=== PATIENT | male | born 1950 | race Caucasian/White ===

== ENCOUNTER 2023-03-11 13:59 | Inpatient (IN) ==
[2023-03-11] MEDS ORDERED: ACETAMINOPHEN 1,000 MG/100 ML VIAL IV STA (14:36)
[2023-03-11] MEDS ORDERED: CEFEPIME 2,000 MG/20 ML VIAL IV STA (14:36)
[2023-03-11] MEDS ORDERED: SODIUM CHLORIDE 0.9% 500 ML IV SCH (14:45)
--- NOTE | 2023-03-11 15:05 | Emergency Department Note ---
Impression & Plan Complicated UTI (urinary tract infection), Fever, Lymphopenia ED Provider Note NAME: DIDI MCMAHON AGE: 72 SEX: M ARRIVES VIA: Walk-In INFORMANT: Patient ED PROVIDER(S): Michael Oglesby MD CHIEF COMPLAINT: Fever PLAN: Disposition: Admit MEDICAL DECISION MAKING: The patient is a pleasant 72-year-old gentleman with past medical history of CAD, hypertension, hyperlipidemia, GERD, BPH presents to the emergency department for return of fevers after being discharged from this facility 03/08 following admission from 03/04-03/08 for continuation of fevers in the setting of admission from 02/27-03/01 for urinary infection in the setting of having a prostate biopsy. Patient's initial urine culture demonstrated E. coli which was resistant to fluoroquinolones and otherwise sensitive. Urine culture on most recent admission showed no growth however in the setting of being on antibiotics. The patient developed symptoms of fever to 103 at home with chills and sweating. He was seen yesterday for voiding trial which was successful and had his Banuelos catheter removed. The patient has been on Bactrim since his discharge here. He has had an intermittent cough since his discharge but denies chest pain shortness of breath. Denies any productive sputum. On evaluation the patient is uncomfortable, febrile to 38.5 with blood pressure 100/50s. O2 saturation is 89% on room air improving to mid 90s on 2 L nasal cannula. He appears clinically dry. Abdomen is nontender without suprapubic fullness. Postvoid bladder scan did not demonstrate urinary retention per second vp hr assessment. EKG without overt acute ischemia. CXR negative for acute cardiopulmonary proces s. WBC within normal limits. However mild lymphopenia is present. Nonspecific. H/H and platelets within normal limits. With chemistry with bicarbonate of 28 without significant anion gap. Sodium is 130. Electrolytes without significant abnormality otherwise. LFTs are normal. Procalcitonin is not elevated. UA demonstrates leukoesterase with WBCs but no bacteria and epithelial cells presen t but in the setting of being on Bactrim. CT of the abdomen pelvis was performed and redemonstrates the patient's prostamegaly with no drainable fluid collection within the heterogenous prostate. Bladder wall thickening is noted consistent with suspected cystitis. No evidence of adjacent infection is seen. Note is made of mild bilateral hydroureter that is suspected to be related to chronic bladder outlet obstruction. Comment of bibasilar atelectasis. Blood cultures were drawn and empiric treatment initiated with IV cefepime. Case was discussed with Dr. Napoles [facility] [place], who will evaluate the patient for admission. Of note, given mild lymphopenia and persistence of fever despite being on appropriate treatment tickborne illness testing was performed to assess for possible alternate source. Triage Nursing notes reviewed and agree them. Prior/outside medical records reviewed Vital Signs: reviewed Differential diagnosis: Viral syndrome, otitis, pharyngitis, pneumonia, influenza, meningitis, urinary tract infection, sepsis, bacteremia, as well as other pathologies. ER treatment provided: See below. Diagnostics interpreted by me: ECG: Sinus rhythm with first-degree AV block, 66 bpm, no ectopy, no overt ST elevation or depression, QTc 390, QRS 86. Cardiac Monitoring: An order for continuous cardiac monitoring was placed and demonstrated Sinus rhythm with first-degree AV block, 66 bpm, no ectopy, Laboratory studies: See below Imaging studies: See below Consultation(s): Case was discussed with Dr. Napoles [facility] hospitalist, who will evaluate the patient for admission. HPI: The patient is a pleasant 72-year-old gentleman with past medical history of CAD, hypertension, hyperlipidemia, GERD, BPH presents to the emergency department for return of fevers after being discharged from this facility 03/08 following admission from 03/04-03/08 for continuation of fevers in the setting of admission from 02/27-03/01 for urinary infection in the setting of having a prostate biopsy. Patient's initial urine culture demonstrated E. coli which was resistant to fluoroquinolones and otherwise sensitive. Urine culture on most recent admission showed no growth however in the setting of being on antibiotics. The patient developed symptoms of fever to 103 at home with chills and sweating. He was seen yesterday for voiding trial which was successful and had his Banuelos catheter removed. The patient has been on Bactrim since his discharge here. He has had an intermittent cough since his discharge but denies chest pain shortness of breath. Denies any productive sputum. ROS: See above HPI for pertinent positives & negatives. A total of 10 systems r eviewed and were otherwise negative. VITALS:See Below PHYSICAL EXAMINATION: GENERAL: Awake, alert, fatigued-appearing, in no distress. HENT: Normocephalic, atraumatic. Oropharynx with dry mucous membranes and otherwise unremarkable. EYES: Normal conjunctiva. Sclera non-icteric. NECK: Supple. No nuchal rigidity. FROM. No JVD. RESPIRATORY: Clear to auscultation. CARDIAC: Regular rate, normal rhythm. Extremities warm and well perfused. Pulses equal. ABDOMEN: Soft, non-distended. No tenderness to palpation. No rebound or guarding. No masses. RECTAL: Deferred. MUSCULOSKELETAL: Chest examination reveals no tenderness. The back is symmetrical on inspection without obvious abnormality. There is no CVA tenderness to palpation. No joint edema. LOWER EXTREMITIES: Calves are equal size bilaterally and non-tender. No edema. No discoloration. NEURO: Normal sensorium. No sensory or motor deficits noted. SKIN: No rash or jaundice noted. Michael Oglesby MD Past Med/Surg History Medical History CAD (coronary artery disease) Elevated PSA Erectile dysfunction HTN (hypertension) Hyperlipidemia Social History Smoking Status: Never smoker Second Hand Exposure: No; Do You Dip or Chew Tobacco: No; Hx Alcohol Use: No Hx Substance Use: No Preferred Language: Russian Communication Ability: Effective Cooperative Extension Agent Required: No Beliefs That Will Affect Care: None Current Living Situation: Spouse Other Information That Helps Us Care for You: No Feels Safe at Home: Yes Safety Concerns: Feels Safe At This Time Assistive Devices: Hearing Aid - Bilateral and Walker Allergies Allergies Allergy/AdvReac Type Severity Reaction Status Date / Time No Known Allergies Allergy Verified 03/10/23 09:18 Home Meds Home Medications Medication Instructions Recorded Confirmed atorvastatin 40 mg tablet 40 mg PO PM 02/27/23 03/11/23 fluticasone propionate 50 2 spray intranasal DAILY 02/27/23 03/11/23 mcg/actuation nasal spray,suspension lisinopril 40 mg tablet 40 mg PO PM 02/27/23 03/11/23 omeprazole 20 mg capsule,delayed 20 mg PO QPM 02/27/23 03/11/23 release Previous Rx's Medication Instructions Recorded tamsulosin 0.4 mg capsule 0.4 mg PO DAILY #90 caps 01/05/23 sulfamethoxazole 800 1 tab PO Q12 10 days #20 tabs 03/07/23 mg-trimethoprim 160 mg tablet (Bactrim DS) amlodipine 5 mg tablet (Norvasc) 10 mg PO QAM 1 month #60 tabs 03/08/23 carvedilol 25 mg tablet 25 mg PO BIDM 1 month #60 tabs 03/08/23 Results & Data (ED) Vital Signs Vital Signs - 24 hr 03/11/23 14:27 03/11/23 15:23 03/11/23 15:23 Temperature 38.5 C H Temperature Source Oral Pulse Rate 66 71 Pulse Rate [Apical] 72 Pulse Rhythm Regular Pulse Rhythm [Apical] Regular Pulse Strength [Apical] Normal Respiratory Rate 20 20 Respiratory Effort / Characteristics Non-Labored Spontaneous Non-Labored Spontaneous Respiratory Depth Normal Normal Respiratory Pattern Regular Blood Pressure 102/56 L Blood Pressure [Right Arm] 124/60 Blood Pressure Mean 71 Blood Pressure Mean [Right Arm] 81 Blood Pressure Position [Right Arm] Semi-fowlers Pulse Oximetry 89 L 95 Oxygen Delivery Method Room Air Room Air Oxygen Flow Rate Sepsis Recent Fever Within 48 Hours No Sepsis New/Unexplained Change in Mental Status No Sepsis Action Taken by Nursing No Action Required 03/11/23 15:23 03/11/23 19:00 Temperature 37.4 C Temperature Source Oral Pulse Rate 68 Pulse Rate [Apical] 74 Pulse Rhythm Pulse Rhythm [Apical] Regular Pulse Strength [Apical] Normal Respiratory Rate 17 Respiratory Effort / Characteristics Non-Labored Spontaneous Respiratory Depth Normal Respiratory Pattern Regular Blood Pressure Blood Pressure [Right Arm] 159/83 H Blood Pressure Mean Blood Pressure Mean [Right Arm] 108 Blood Pressure Position [Right Arm] Semi-fowlers Pulse Oximetry 95 Oxygen Delivery Method Nasal Cannula Oxygen Flow Rate 2 Sepsis Recent Fever Within 48 Hours Sepsis New/Unexplained Change in Mental Status Sepsis Action Taken by Nursing Laboratory Data Attestation: I reviewed the patient's lab results. 03/11/23 15:08 03/11/23 16:43 Lab Results 03/11/23 03/11/23 03/11/23 Range/Units 15:08 15:08 15:08 WBC 9.33 (4.8-10.8) K/ul RBC 4.87 (4.70-6.10) M/uL Hgb 14.6 (14.0-18.0) g/dl Hct 44.3 (42.0-52.0) % MCV 91.0 (80.0-100.0) fL MCH 30.0 (25.0-34.0) pg MCHC 33.0 (32.0-36.0) g/dL RDW Std Deviation 47.0 H (36.4-46.3) fL RDW Coeff of Amor 13.9 (11.5-14.5) % Plt Count 262 (130-400) K/uL MPV 9.4 (9.4-12.4) fL Immature Gran % (Auto) 1.6 % Neut % (Auto) 86.9 % Lymph % (Auto) 7.2 % [place] % (Auto) 3.5 % Eos % (Auto) 0.3 % Baso % (Auto) 0.5 % Neut # (Auto) 8.10 H (1.40-6.50) K/uL Lymph # (Auto) 0.67 L (1.20-3.40) K/uL [place] # (Auto) 0.33 (0.11-0.59) K/uL Eos # (Auto) 0.03 (0.00-0.50) K/uL Baso # (Auto) 0.05 (0.00-0.20) K/uL Immature Gran # (Auto) 0.15 (0.01-0.20) K/uL Sodium Cancelled Potassium Cancelled Chloride Cancelled Carbon Dioxide Cancelled Anion Gap Cancelled BUN Cancelled Creatinine Cancelled Est Cr Clr Drug Dosing Cancelled Est GFR ( Amer) Cancelled Est GFR (Non-Af Amer) Cancelled BUN/Creatinine Ratio Cancelled Glucose Cancelled Lactate 1.3 (0.4-2.0) mmol/L Calcium Cancelled Magnesium Cancelled Total Bilirubin Cancelled Direct Bilirubin Cancelled AST Cancelled ALT Cancelled Alkaline Phosphatase Cancelled Total Protein Cancelled Albumin Cancelled Procalcitonin Urine Color Urine Appearance (Clear) Urine pH (4.5-7.5) Ur Specific [place] (1.000-1.030) Urine Protein (Negative) Urine Glucose (UA) (Negative) Urine Ketones (Negative) Urine Blood (Negative) Urine Nitrite (Negative) Urine Bilirubin (Negative) Urine Urobilinogen (Negative) Ur Leukocyte Esterase (Negative) Urine WBC (Auto) (0-5) /hpf Urine RBC (Auto) (0-4) /hpf U Hyaline Cast (Auto) (0-5) /lpf U Epithel Cells (Auto) (0-5) /lpf Urine Bacteria (Auto) (Negative) Adenovirus (PCR) (NotDetected) Anaplasma Smear Babesia Smear B. pertussis DNA (PCR) (NotDetected) B.parapertussis DNA PCR (NotDetected) Lyme Disease IgG Ab (Negative) Lyme Disease IgM Ab (Negative) C. pneumoniae DNA (PCR) (NotDetected) Coronavirus OC43 (PCR) (NotDetected) Coronavirus HKU1 (PCR) (NotDetected) Coronavirus 229E (PCR) (NotDetected) SARS-CoV-2 (PCR) (NotDetected) Coronavirus NL63 (PCR) (NotDetected) Human Metapneumovir PCR (NotDetected) Influenza Type A (PCR) (NotDetected) Influenza Type B (PCR) (NotDetected) M. pneumoniae (PCR) (NotDetected) Parainfluenza 1 (PCR) (NotDetected) Parainfluenza 2 (PCR) (NotDetected) Parainfluenza 3 (PCR) (NotDetected) Parainfluenza 4 (PCR) (NotDetected) RSV (PCR) (NotDetected) Entero/Rhino (PCR) (NotDetected) 03/11/23 03/11/23 03/11/23 Range/Units 15:08 15:08 15:08 WBC (4.8-10.8) K/ul RBC (4.70-6.10) M/uL Hgb (14.0-18.0) g/dl Hct (42.0-52.0) % MCV (80.0-100.0) fL MCH (25.0-34.0) pg MCHC (32.0-36.0) g/dL RDW Std Deviation (36.4-46.3) fL RDW Coeff of Amor (11.5-14.5) % Plt Count (130-400) K/uL MPV (9.4-12.4) fL Immature Gran % (Auto) % Neut % (Auto) % Lymph % (Auto) % [place] % (Auto) % Eos % (Auto) % Baso % (Auto) % Neut # (Auto) (1.40-6.50) K/uL Lymph # (Auto) (1.20-3.40) K/uL [place] # (Auto) (0.11-0.59) K/uL Eos # (Auto) (0.00-0.50) K/uL Baso # (Auto) (0.00-0.20) K/uL Immature Gran # (Auto) (0.01-0.20) K/uL Sodium Potassium Chloride Carbon Dioxide Anion Gap BUN Creatinine Est Cr Clr Drug Dosing Est GFR ( Amer) Est GFR (Non-Af Amer) BUN/Creatinine Ratio Glucose Lactate (0.4-2.0) mmol/L Calcium Magnesium Total Bilirubin Direct Bilirubin AST ALT Alkaline Phosphatase Total Protein Albumin Procalcitonin Cancelled Urine Color Dark Yellow Urine Appearance Cloudy A (Clear) Urine pH 5.5 (4.5-7.5) Ur Specific [place] 1.027 (1.000-1.030) Urine Protein 1+ H (Negative) Urine Glucose (UA) Negative (Negative) Urine Ketones Negative (Negative) Urine Blood Trace H (Negative) Urine Nitrite Negative (Negative) Urine Bilirubin 1+ H (Negative) Urine Urobilinogen Negative (Negative) Ur Leukocyte Esterase 1+ H (Negative) Urine WBC (Auto) 10-30 H (0-5) /hpf Urine RBC (Auto) 5-10 H (0-4) /hpf U Hyaline Cast (Auto) 10-30 H (0-5) /lpf U Epithel Cells (Auto) 20-30 H (0-5) /lpf Urine Bacteria (Auto) Negative (Negative) Adenovirus (PCR) (NotDetected) Anaplasma Smear See Comment Babesia Smear See Comment B. pertussis DNA (PCR) (NotDetected) B.parapertussis DNA PCR (NotDetected) Lyme Disease IgG Ab (Negative) Lyme Disease IgM Ab (Negative) C. pneumoniae DNA (PCR) (NotDetected) Coronavirus OC43 (PCR) (NotDetected) Coronavirus HKU1 (PCR) (NotDetected) Coronavirus 229E (PCR) (NotDetected) SARS-CoV-2 (PCR) (NotDetected) Coronavirus NL63 (PCR) (NotDetected) Human Metapneumovir PCR (NotDetected) Influenza Type A (PCR) (NotDetected) Influenza Type B (PCR) (NotDetected) M. pneumoniae (PCR) (NotDetected) Parainfluenza 1 (PCR) (NotDetected) Parainfluenza 2 (PCR) (NotDetected) Parainfluenza 3 (PCR) (NotDetected) Parainfluenza 4 (PCR) (NotDetected) RSV (PCR) (NotDetected) Entero/Rhino (PCR) (NotDetected) 03/11/23 03/11/23 03/11/23 Range/Units 15:19 16:43 16:43 WBC (4.8-10.8) K/ul RBC (4.70-6.10) M/uL Hgb (14.0-18.0) g/dl Hct (42.0-52.0) % MCV (80.0-100.0) fL MCH (25.0-34.0) pg MCHC (32.0-36.0) g/dL RDW Std Deviation (36.4-46.3) fL RDW Coeff of Amor (11.5-14.5) % Plt Count (130-400) K/uL MPV (9.4-12.4) fL Immature Gran % (Auto) % Neut % (Auto) % Lymph % (Auto) % [place] % (Auto) % Eos % (Auto) % Baso % (Auto) % Neut # (Auto) (1.40-6.50) K/uL Lymph # (Auto) (1.20-3.40) K/uL [place] # (Auto) (0.11-0.59) K/uL Eos # (Auto) (0.00-0.50) K/uL Baso # (Auto) (0.00-0.20) K/uL Immature Gran # (Auto) (0.01-0.20) K/uL Sodium 130 L Potassium 4.6 Chloride 104 Carbon Dioxide 20 L Anion Gap 6 BUN 20 Creatinine 1.15 Est Cr Clr Drug Dosing 82.8 Est GFR ( Amer) 73.3 Est GFR (Non-Af Amer) 63.2 BUN/Creatinine Ratio 17.4 Glucose 116 H Lactate (0.4-2.0) mmol/L Calcium 8.2 L Magnesium 1.7 Total Bilirubin 0.5 Direct Bilirubin 0.1 AST 25 ALT 38 Alkaline Phosphatase 83 Total Protein 6.1 Albumin 3.2 L Procalcitonin 0.33 Urine Color Urine Appearance (Clear) Urine pH (4.5-7.5) Ur Specific [place] (1.000-1.030) Urine Protein (Negative) Urine Glucose (UA) (Negative) Urine Ketones (Negative) Urine Blood (Negative) Urine Nitrite (Negative) Urine Bilirubin (Negative) Urine Urobilinogen (Negative) Ur Leukocyte Esterase (Negative) Urine WBC (Auto) (0-5) /hpf Urine RBC (Auto) (0-4) /hpf U Hyaline Cast (Auto) (0-5) /lpf U Epithel Cells (Auto) (0-5) /lpf Urine Bacteria (Auto) (Negative) Adenovirus (PCR) Not Detected (NotDetected) Anaplasma Smear Babesia Smear B. pertussis DNA (PCR) Not Detected (NotDetected) B.parapertussis DNA PCR Not Detected (NotDetected) Lyme Disease IgG Ab (Negative) Lyme Disease IgM Ab (Negative) C. pneumoniae DNA (PCR) Not Detected (NotDetected) Coronavirus OC43 (PCR) Not Detected (NotDetected) Coronavirus HKU1 (PCR) Not Detected (NotDetected) Coronavirus 229E (PCR) Not Detected (NotDetected) SARS-CoV-2 (PCR) Not Detected (NotDetected) Coronavirus NL63 (PCR) Not Detected (NotDetected) Human Metapneumovir PCR Not Detected (NotDetected) Influenza Type A (PCR) Not Detected (NotDetected) Influenza Type B (PCR) Not Detected (NotDetected) M. pneumoniae (PCR) Not Detected (NotDetected) Parainfluenza 1 (PCR) Not Detected (NotDetected) Parainfluenza 2 (PCR) Not Detected (NotDetected) Parainfluenza 3 (PCR) Not Detected (NotDetected) Parainfluenza 4 (PCR) Not Detected (NotDetected) RSV (PCR) Not Detected (NotDetected) Entero/Rhino (PCR) Not Detected (NotDetected) 03/11/23 Range/Units 16:43 WBC (4.8-10.8) K/ul RBC (4.70-6.10) M/uL Hgb (14.0-18.0) g/dl Hct (42.0-52.0) % MCV (80.0-100.0) fL MCH (25.0-34.0) pg MCHC (32.0-36.0) g/dL RDW Std Deviation (36.4-46.3) fL RDW Coeff of Amor (11.5-14.5) % Plt Count (130-400) K/uL MPV (9.4-12.4) fL Immature Gran % (Auto) % Neut % (Auto) % Lymph % (Auto) % [place] % (Auto) % Eos % (Auto) % Baso % (Auto) % Neut # (Auto) (1.40-6.50) K/uL Lymph # (Auto) (1.20-3.40) K/uL [place] # (Auto) (0.11-0.59) K/uL Eos # (Auto) (0.00-0.50) K/uL Baso # (Auto) (0.00-0.20) K/uL Immature Gran # (Auto) (0.01-0.20) K/uL Sodium Potassium Chloride Carbon Dioxide Anion Gap BUN Creatinine Est Cr Clr Drug Dosing Est GFR ( Amer) Est GFR (Non-Af Amer) BUN/Creatinine Ratio Glucose Lactate (0.4-2.0) mmol/L Calcium Magnesium Total Bilirubin Direct Bilirubin AST ALT Alkaline Phosphatase Total Protein Albumin Procalcitonin Urine Color Urine Appearance (Clear) Urine pH (4.5-7.5) Ur Specific [place] (1.000-1.030) Urine Protein (Negative) Urine Glucose (UA) (Negative) Urine Ketones (Negative) Urine Blood (Negative) Urine Nitrite (Negative) Urine Bilirubin (Negative) Urine Urobilinogen (Negative) Ur Leukocyte Esterase (Negative) Urine WBC (Auto) (0-5) /hpf Urine RBC (Auto) (0-4) /hpf U Hyaline Cast (Auto) (0-5) /lpf U Epithel Cells (Auto) (0-5) /lpf Urine Bacteria (Auto) (Negative) Adenovirus (PCR) (NotDetected) Anaplasma Smear Babesia Smear B. pertussis DNA (PCR) (NotDetected) B.parapertussis DNA PCR (NotDetected) Lyme Disease IgG Ab Negative (Negative) Lyme Disease IgM Ab Negative (Negative) C. pneumoniae DNA (PCR) (NotDetected) Coronavirus OC43 (PCR) (NotDetected) Coronavirus HKU1 (PCR) (NotDetected) Coronavirus 229E (PCR) (NotDetected) SARS-CoV-2 (PCR) (NotDetected) Coronavirus NL63 (PCR) (NotDetected) Human Metapneumovir PCR (NotDetected) Influenza Type A (PCR) (NotDetected) Influenza Type B (PCR) (NotDetected) M. pneumoniae (PCR) (NotDetected) Parainfluenza 1 (PCR) (NotDetected) Parainfluenza 2 (PCR) (NotDetected) Parainfluenza 3 (PCR) (NotDetected) Parainfluenza 4 (PCR) (NotDetected) RSV (PCR) (NotDetected) Entero/Rhino (PCR) (NotDetected) Administered Medications Ondansetron HCl (Ondansetron Inj 2 Mg/Ml 2 Ml Vial) 4 mg IV Q6H PRN PRN Reason: Nausea Stop: 04/10/23 23:01 Last Admin: 03/11/23 23:24 Dose: 4 mg Documented By: EKF Discontinued Medications Cefepime HCl (Maxipime) 2,000 mg in 20 mls @ 5 mls/min IV NOW STA; Protocol Stop: 03/11/23 14:39 Last Admin: 03/11/23 15:09 Dose: 5 mls/min Documented By: HS Acetaminophen (Ofirmev) 1,000 mg in 100 mls @ 400 mls/hr IV NOW STA Stop: 03/11/23 14:50 Last Infusion: 03/11/23 16:36 Dose: 0 mls/hr Documented By: Admin: 03/11/23 15:12 Dose: 400 mls/hr Documented By: HS Sodium Chloride (Nss) 500 mls @ 999 mls/hr IV .Q31M YULIANA Stop: 03/11/23 15:15 Last Infusion: 03/11/23 16:36 Dose: 0 mls/hr Documented By: Admin: 03/11/23 15:12 Dose: 999 mls/hr Documented By: PILAR Sodium Chloride (Nss) 1,000 mls @ 999 mls/hr IV .Q1H1M YULIANA Stop: 03/11/23 16:45 Last Infusion: 03/11/23 19:07 Dose: 0 mls/hr Documented By: Admin: 03/11/23 16:41 Dose: 999 mls/hr Documented By: Infusion: 03/11/23 16:10 Dose: 999 mls/hr Documented By: Admin: 03/11/23 15:09 Dose: 999 mls/hr Documented By: PILAR Ioversol (Optiray 320 100ml) 90 ml IV ONCE ONE Stop: 03/11/23 17:40 Last Admin: 03/11/23 17:40 Dose: 90 ml Documented By: ANTONIO Imaging Data Radiologist's Impression: Chest X-Ray 03/11/23 14:36 SINGLE VIEW CHEST CLINICAL HISTORY: Sepsis. FINDINGS: An AP, portable, upright chest radiograph is compared to study dated 03/04/2023. The patient is status post midline sternotomy. The heart is enlarged noting atherosclerotic calcification of the thoracic aorta. The pulmonary vasculature is noncongested. Chronic interstitial thickening similar to previous. There is bibasilar scarring/atelectasis. The lungs and pleural spaces are otherwise clear. No pneumothorax is seen. The skeletal structures are osteopenic. The bony thorax is grossly intact. IMPRESSION: Cardiomegaly with no active disease in the chest. ACT 112: Negative or not required by law. Electronically signed by: Bassam Sun M.D. 03/11/2023 3:55 PM Abdomen/Pelvis CT 03/11/23 15:56 CT abd pelvis IV con only CLINICAL HISTORY: sepsis, UTI, ?prostatitis TECHNIQUE: Helical axial images of the abdomen and pelvis were obtained and displayed. Automated dose lowering techniques and/or adjustment according to patient size were utilized for this exam. This exam was performed with intravenous contrast. CT DOSE: 1890.63 mGy.cm COMPARISON: Prior CT abdomen pelvis 03/04/2023 FINDINGS: Lower chest: Bibasilar atelectasis versus scarring is seen. Bronchiectasis is seen. Liver: Unremarkable. No focal lesions are seen. Gallbladder and biliary tree: Patient is status post cholecystectomy. No intra- or extrahepatic biliary ductal dilation. Pancreas: Unremarkable, no focal lesions. Spleen: Unremarkable. Adrenals: Unremarkable. Kidneys and ureters: Exophytic lesions are seen measuring greater than simple fluid density, similar to prior exam. Ureters are slightly prominent bilaterally without evidence of enhancement. Bladder: Diffuse homogeneous wall thickening is seen. Reproductive organs: Markedly prostatomegaly is seen measuring up to 81 mm in diameter. The prostate is heterogeneous but without evidence of fluid collection to suggest abscess. Bowel: The appendix is normal. Lymph nodes Retroperitoneal: Unremarkable. Pelvic: Unremarkable. Mesenteric: Unremarkable. Peritoneum: Normal. Vessels: Unremarkable. Abdominal wall: A fat-containing umbilical hernia is seen. Bilateral inguinal hernias are seen. Bones: Degenerative changes in the visualized spine. IMPRESSION: 1. Redemonstration of prostatomegaly. No drainable fluid collection is definitely seen within the heterogeneous prostate. Bladder wall thickening may represent cystitis and/or sequelae of chronic outlet obstruction. No ascending infection is seen. 2. Mild bilateral hydroureter is likely secondary to chronic bladder outlet o bstruction. 3. Redemonstration of left renal lesions which measure greater than simple fluid density. Nonemergent renal ultrasound is recommended to exclude malignancy. ACT 112: Negative or not required by law. Electronically signed by: Lalo Lopez M.D. 03/11/2023 5:57 PM Discharge Plan Visit Data Chief Complaint: Fever Stated Complaint: FEVER 103, DOC REF ED Provider: Michael Oglesby Discharge Problem: Complicated UTI (urinary tract infection), Fever, Lymphopenia Patient Disposition: Admitted As Inpatient Discharge Instructions Interventions: ED Discharge Assessment Last Done: 03/11/23 23:07
[2023-03-11] MEDS: SODIUM CHLORIDE 0.9% 1,000 ML IV SCH ×2 (15:09→16:41)
[2023-03-11 15:39] LABS: Basophils # (auto) 0.05 K/uL (0.00-0.20); Basophils % (auto) 0.5 %; Eosinophils # (auto) 0.03 K/uL (0.00-0.50); Eosinophils % (auto) 0.3 %; Hematocrit (blood only) 44.3 % (42.0-52.0); Hemoglobin 14.6 g/dl (14.0-18.0); Immature Granulocytes # (auto) 0.15 K/uL (0.01-0.20); Immature Granulocytes % (auto) 1.6 %; Lymphocytes # (auto) 0.67 K/uL (1.20-3.40); Lymphocytes % (auto) 7.2 %; Mean Platelet Volume 9.4 fL (9.4-12.4); Monocytes # (auto) 0.33 K/uL (0.11-0.59); Monocytes % (auto) 3.5 %; Neutrophils % (auto) 86.9 %; Platelet Count 262 K/uL (130-400); RDW Coefficient of Variation 13.9 % (11.5-14.5); Red Blood Count 4.87 M/uL (4.70-6.10); White Blood Count 9.33 K/ul (4.8-10.8)
--- NOTE | 2023-03-11 15:43 | Electrocardiogram Report ---
Test Reason : Blood Pressure : / mmHG Vent. Rate : 066 BPM Atrial Rate : 066 BPM P-R Int : 228 ms QRS Dur : 086 ms QT Int : 380 ms P-R-T Axes : 046 -18 041 degrees QTc Int : 398 ms Sinus rhythm with 1st degree A-V block Otherwise normal ECG When compared with ECG of 04-MAR-2023 09:35, Premature ventricular complexes are no longer Present Confirmed by Rich Martinez ([id number]) on 03/11/2023 3:43:47 PM Referred By: Confirmed By:Rich Martinez
[2023-03-11 15:50] LABS: Appearance Urine Cloudy (Clear); Bacteria Urine Automated Negative (Negative); Blood Urine Trace (Negative); Color Urine Dark Yellow; Epithelial Cell Urine Auto 20-30 /lpf (0-5); Glucose Urine UA Negative (Negative); Ketones Urine Negative (Negative); Leukocyte Esterase Urine 1+ (Negative); Nitrite Urine Negative (Negative); Protein Urine 1+ (Negative); Specific Gravity Urine 1.027 (1.000-1.030); Urobilinogen Urine Negative (Negative); pH Urine 5.5 (4.5-7.5)
--- NOTE | 2023-03-11 15:56 | XRay Report ---
SINGLE VIEW CHEST CLINICAL HISTORY: Sepsis. FINDINGS: An AP, portable, upright chest radiograph is compared to study dated 03/04/2023. The patient is status post midline sternotomy. The heart is enlarged noting atherosclerotic calcification of the thoracic aorta. The pulmonary vasculature is noncongested. Chronic interstitial thickening similar t o previous. There is bibasilar scarring/atelectasis. The lungs and pleural spaces are otherwise clear . No pneumothorax is seen. The skeletal structures are osteopenic. The bony thorax is grossly intact. IMPRESSION: Cardiomegaly with no active disease in the chest. ACT 112: Negative or not required by law. Electronically signed by: Bassam Sun M.D. 03/11/2023 3:55 PM
[2023-03-11 15:58] LABS: Bilirubin Urine 1+ (Negative)
[2023-03-11 16:22] LABS: Adenovirus PCR Not Detected (NotDetected); Bordetella parapertussis PCR Not Detected (NotDetected); Bordetella pertussis PCR Not Detected (NotDetected); Chlamydia pneumoniae PCR Not Detected (NotDetected); Coronavirus 229E PCR Not Detected (NotDetected); Coronavirus CoV-2 (COVID19)PCR Not Detected (NotDetected); Coronavirus HKU1 PCR Not Detected (NotDetected); Coronavirus NL63 PCR Not Detected (NotDetected); Coronavirus OC43PCR Not Detected (NotDetected); Human Metapneumovirus PCR Not Detected (NotDetected); Influenza A PCR Not Detected (NotDetected); Influenza B PCR Not Detected (NotDetected); Mycoplasma pneumoniae PCR Not Detected (NotDetected); Parainfluenza Virus 1 PCR Not Detected (NotDetected); Parainfluenza Virus 2 PCR Not Detected (NotDetected); Parainfluenza Virus 3 PCR Not Detected (NotDetected); Parainfluenza Virus 4 PCR Not Detected (NotDetected); Respiratory Syncytial VirusPCR Not Detected (NotDetected); Rhinovirus/Enterovirus PCR Not Detected (NotDetected)
[2023-03-11 17:15] LABS: Albumin Level 3.2 gm/dl (3.4-5.0); BUN Creatinine Ratio 17.4 (10-20); Bilirubin Direct 0.1 mg/dl (0-0.2); Bilirubin,Total 0.5 mg/dl (0.2-1.0); Calcium 8.2 mg/dl (8.6-10.3); Creatinine Clr Calc Pharmacy 82.8 ml/min; Est GFR (African American) 73.3 ml/min; Est GFR (Non-African American) 63.2 ml/min; Magnesium 1.7 mg/dl (1.7-2.4); Potassium 4.6 mmol/L (3.5-5.1); Total Protein 6.1 gm/dl (6.0-8.3)
[2023-03-11] MEDS ORDERED: OPTIRAY 320 100ml IV ONE (17:39)
--- NOTE | 2023-03-11 17:59 | CT Scan Report ---
CT abd pelvis IV con only CLINICAL HISTORY: sepsis, UTI, ?prostatitis TECHNIQUE: Helical axial images of the abdomen and pelvis were obtained and displayed. Automated dose lowering techniques and/or adjustment according to patient size were utilized for this exam. This e xam was performed with intravenous contrast. CT DOSE: 1890.63 mGy.cm COMPARISON: Prior CT abdomen pelvis 03/04/2023 FINDINGS: Lower chest: Bibasilar atelectasis versus scarring is seen. Bronchiectasis is seen. Liver: Unremarkable. No focal lesions are seen. Gallbladder and biliary tree: Patient is status post cholecystectomy. No intra- or extrahepatic bilia ry ductal dilation. Pancreas: Unremarkable, no focal lesions. Spleen: Unremarkable. Adrenals: Unremarkable. Kidneys and ureters: Exophytic lesions are seen measuring greater than simple fluid density, similar to prior exam. Ureters are slightly prominent bilaterally without evidence of enhancement. Bladder: Diffuse homogeneous wall thickening is seen. Reproductive organs: Markedly prostatomegaly is seen measuring up to 81 mm in diameter. The prostate is heterogeneous but without evidence of fluid collection to suggest abscess. Bowel: The appendix is normal. Lymph nodes Retroperitoneal: Unremarkable. Pelvic: Unremarkable. Mesenteric: Unremarkable. Peritoneum: Normal. Vessels: Unremarkable. Abdominal wall: A fat-containing umbilical hernia is seen. Bilateral inguinal hernias are seen. Bones: Degenerative changes in the visualized spine. IMPRESSION: 1. Redemonstration of prostatomegaly. No drainable fluid collection is definitely seen within the he terogeneous prostate. Bladder wall thickening may represent cystitis and/or sequelae of chronic outle t obstruction. No ascending infection is seen. 2. Mild bilateral hydroureter is likely secondary to chronic bladder outlet obstruction. 3. Redemonstration of left renal lesions which measure greater than simple fluid density. Nonemergen t renal ultrasound is recommended to exclude malignancy. ACT 112: Negative or not required by law. Electronically signed by: Lalo Lopez M.D. 03/11/2023 5:57 PM
[2023-03-11 19:06] LABS: Lyme Ab IgG w/WB Rflx Negative (Negative); Lyme Ab IgM w/WB Rflx Negative (Negative)
--- NOTE | 2023-03-11 19:17 | History & Physical Report ---
Date of Service March 11, 2023 Assessment & Plan (1) Sepsis: Plan: -Meeting SIRS criteria on admission, sepsis 2/2 UTI +/- prostatitis -Cefepime initiated in ER, will continue for now -BCx, UCx pending -Tickborne panel pending for fever evaluation -Currently hemodynamically stable, fever has resolved with Tylenol -Tylenol PRN fever -Monitor CBC (2) Complicated UTI (urinary tract infection): Plan: -Noted E Coli UTI resistant to fluoroquinolones from 02/27 UCx -Has been undergoing treatment with Keflex and Bactrim as outpatient over last admissions -Treatment as above with cefepime -Repeat UCx pending (3) Prostatitis, acute: Plan: -Possibly concurrent with UTI or primary infectious process given CT findings and symptom history -Continue cefepime, remainder as above (4) Metabolic encephalopathy: Plan: -Likely due to acute infection -Mental status is improving and close to baseline per family at bedside (5) Acute hyponatremia: Plan: -Na 130 on admission -Likely from poor oral intake over past few weeks, noted hyponatremia with previous admissions -Monitor BMP (6) Urinary retention: Plan: -Recent acute urinary retention in last hospitalization and Banuelos removal on 03/10 -As pt has been voiding normally since, deferring Banuelos placement on admission -Measure intake and output -Urology consult placed given recent readmission x2 and complicated UTI -Continue Flomax as prescribed by urology (7) Renal lesion: Plan: -Noted redemonstration on CTAP -Ordered renal US for further characterization (8) Acute hypoxic respiratory failure: Plan: -Hypoxia noted in ED for which patient was started on 3L NC O2 -CXR with cardiomegaly w/o acute process -Likely due to exertion, setting of morbid obesity -Weaned to 2L and saturating well by end of evaluation (9) CAD (coronary artery disease): Plan: -Continue atorvastatin, carvedilol, lisinopril (10) Hyperlipidemia: Plan: -Continue atorvastatin (11) HTN (hypertension): Plan: -Continue lisinopril, amlodipine, carvedilol -BP stable (12) GERD (gastroesophageal reflux disease): Plan: -Continue omeprazole Plan FENGI: Heart healthy Code status: Full DVT prophylaxis: Lovenox Isolation: None Disposition: Medical/surgical History of Present Illness Chief Complaint: UTI Primary Care Provider: Neri Loyd Pt is 72 yo M with PMH CAD, HTN, HLD, GERD, BPH presenting with fever. Pt admitted 02/27-03/01 for E Coli UTI/prostatitis following prostate biopsy on 02/26 (pathology report since with benign glands), treated with cefepime/daptomycin and discharged on Keflex. Continued to have dysuria, urinary frequency, fevers with Tmax 102 F and diaphoresis, chills. Readmitted 03/04-03/08 due to metabolic encephalopathy 2/2 UTI/prostatitis, hyponatremia, acute urinary retention. Banuelos catheter placed, continued by urology. Discharged on Bactrim for planned 14 day course. Pt has unfortunately continued to have similar UTI symptoms, diaphoresis, chills, fever Tmax 103 F and confusion. He has had poor oral intake and an episode of NBNB emesis this AM. Banuelos removed by urology at visit on 03/10, pt has been voiding normally since. Brought to ER by family to day. Pt arrived to ER hemodynamically stable, though with transient dyspnea and hypoxia to 89% O2 and fever 38.5 C. Initial evaluation significant for Na 130, UA with WBCs, hyaline + epithelial casts. RVP negative. CXR with some cardiomegaly. CTAP with redemonstration of prostatomegaly w/o drainable fluid collection, bladder wall thickening possibly physician representative of cystitis, mild b/l hydroureter, redemonstration of L renal lesions. ER interventions include 2.5L NSS repletion, cefepime 2g, Tylenol 1000 mg IV. At present, pt reports feeling ok, denies any new symptoms. Family states his mental status is now largely back to baseline, reports he has not had any hematuria. Allergies Allergy/AdvReac Type Severity Reaction Status Date / Time No Known Allergies Allergy Verified 03/10/23 09:18 Home Medications Medication Instructions Recorded Confirmed Type tamsulosin 0.4 mg capsule 0.4 mg PO DAILY #90 caps 01/05/23 03/11/23 Rx atorvastatin 40 mg tablet 40 mg PO PM 02/27/23 03/11/23 History fluticasone propionate 50 2 spray intranasal DAILY 02/27/23 03/11/23 History mcg/actuation nasal spray,suspension lisinopril 40 mg tablet 40 mg PO PM 02/27/23 03/11/23 History omeprazole 20 mg capsule,delayed 20 mg PO QPM 02/27/23 03/11/23 History release sulfamethoxazole 800 1 tab PO Q12 10 days #20 tabs 03/07/23 03/11/23 Rx mg-trimethoprim 160 mg tablet (Bactrim DS) amlodipine 5 mg tablet (Norvasc) 10 mg PO QAM 1 month #60 tabs 03/08/23 03/11/23 Rx carvedilol 25 mg tablet 25 mg PO BIDM 1 month #60 tabs 03/08/23 03/11/23 Rx Past Med/Surg History Medical History CAD (coronary artery disease) Elevated PSA Erectile dysfunction HTN (hypertension) Hyperlipidemia Social History Smoking Status: Never smoker Second Hand Exposure: No; Do You Dip or Chew Tobacco: No; Hx Alcohol Use: No Hx Substance Use: No Preferred Language: Bolivian Communication Ability: Effective Recruiting Associate Required: No Beliefs That Will Affect Care: None Current Living Situation: Spouse Other Information That Helps Us Care for You: No Feels Safe at Home: Yes Safety Concerns: Feels Safe At This Time Assistive Devices: Walker Review of Systems Review of Systems: Per HPI/Subjective Physical Exam Physical Exam: General: tired-appearing, no acute distress HEENT: PERRL, EOMI, conjunctivae clear without injection, anicteric sclerae, moist mucous membranes, clear oropharynx without exudate or erythema Neck: supple, trachea midline, no thyromegaly, no JVD, no cervical lymphadenopathy CV: RRR, normal S1 and S2, no murmurs Resp: CTAB, no increased work of breathing, no crackles or wheezes Abd: Soft, nontender, no suprapubic tenderness, nondistended, no guarding or rebound, no hepatosplenomegaly MSK: Normal bulk of all four extremities Neuro: AOx3, no focal motor or sensory deficits Skin: no rashes or lesions, warm and dry Ext: no LE peripheral edema or erythema, capillary refill <2s in all four extremities, 2+ LE peripheral pulses b/l Results & Data Results & Data Vital Signs (Past 12 Hours) Vital Signs Temp Pulse Pulse Resp BP BP Pulse Ox 03/11/23 15:23 68 03/11/23 15:23 71 03/11/23 15:23 72 20 124/60 95 03/11/23 14:27 38.5 C H 66 20 102/56 L 89 L O2 Del Method 03/11/23 15:23 03/11/23 15:23 03/11/23 15:23 Room Air 03/11/23 14:27 Room Air Supervising Physician Co-Signing Physician Notes Attending addendum: I have physically seen this patient, have supervised the medical residents activities, and agree with the H&P unless as otherwise noted. Assessment and Plan: Sepsis due to UTI/prostatitis- Follow urine culture and sensitivity Follow blood cultures and sensitivity Tickborne panel pending Continue empiric cefepime 2 g IV every 12 hours Acetaminophen 650 mg p.o. every 6 hours as needed for mild pain or fever Most recent infection from 02/27 is fluoroquinolone resistant E. coli UTI Continue rehydration with IV fluids, patient has already received 2.5 L normal saline from the ED Metabolic encephalopathy- Follow improvement in cognition as response to treatment for UTI and adequate rehydration CAD/hypertension- Continue routine medications with hold parameters: Carvedilol, lisinopril Remaining orders and notations as noted Resident Activity Tracking Resident Involvement: Resident Care Provided Care Provided: Adult Hospital Medicine
--- NOTE | 2023-03-11 22:02 | Urology Consultation ---
Date of Consultation March 11, 2023 Assessment & Plan (1) Sepsis: Patient has been admitted on the hospitalist service. From a urologic perspective we recommend the following: As the patient has had ongoing nausea and vomiting would recommend maintaining the patient on clear liquid for the present time with advancement of his diet as his symptoms john. It appears that the patient has urinary tract infection. Appropriate cultures have been sent and the patient has been placed on broad-spectrum antibiotics in the form of cefepime which should continue. Antibiotics can thus be tailored further once further culture data is available The patient takes Flomax which should continue to avoid urinary retention I do not feel the patient requires a Banuelos catheter at this time as he is voiding adequately. Of note, he he did have a bladder scan performed after he voided which revealed that his bladder was empty. The medical service has ordered a tickborne panel for further fever evaluation which is pending. Appropriate actions can be taken based on the results of these items once they are completed Concerning renal lesions noted on CT scan, a renal ultrasound has been ordered and is pending and further actions were taken based on these results Additional recommendations be forthcoming based on his clinical course as unfolds Addendum (12:15 AM) Patient noted to be febrile at this time with a temperature 38.7. He has a slight tachycardia with a heart of 95. He remains free of hypotension his blood pressure is 151/68. Patient visited at bedside and notes that he is feeling somewhat better than what was noted in the emergency department. He has not had any further nausea and vomiting since my visit with him in the emergency department. He denies any abdominal pain. He notes he continues to void without difficulty. We will continue to provide supportive care with intravenous fluids and broad- spectrum antibiotics and await cultures at which time antibiotics can be further tailored based on these results. (2) Urinary tract infection: (3) Renal lesion: History of Present Illness Reason for Consultation: Sepsis, complicated urinary tract infection History of Present Illness This is a 72-year-old male who underwent a prostate needle biopsy on 02/26/2023. The day following that procedure the patient presented to the hospital with fevers and was ultimately admitted to the hospital for treatment of a urinary tract infection which grew E. coli. The E. coli in the specimen was noted to be resistant to quinolones. The patient was discharged from the hospital but presented back to the hospital the following day secondary to urinary retention. He had to have a Banuelos catheter placed and patient was continued on antibiotics and ultimately discharged home on double strength Bactrim for total of 14 days. He was also discharged home with Banuelos catheter in place. The patient followed up with the urology office yesterday for a voiding trial which he passed. The patient was doing well initially after his voiding trial but presented to the emergency department secondary to fevers. Should be noted that his family was present at bedside I did help supplement the history. As noted the patient was initially doing well after his voiding trial but subsequent developed fevers between 101 and 103. He has had associated nausea and vomiting and did have some intermittent confusion. Patient says that he is not having the urinary frequency but does have urinary urgency at times. He does report some dysuria but denies any hematuria. He does feel as though he can empty his bladder completely after voiding. Patient denies any perineal pain. Despite his nausea and vomiting he denies any abdominal pain. He notes that over the past 24 hours he has had a poor appetite. He has not had any falls or head injuries. Since arrival to the hospital patient has had labs and imaging which) reviewed. A chest x-ray was performed that showed no evidence of pneumonia. Patient also had a CT scan of the abdomen pelvis. This showed the patient had prostamegaly. The prostate gland was noted to be heterogeneous without any drainable fluid collection noted. The bladder wall was noted to be thickened which was felt to likely represent cystitis or sequelae of a colonic chronic bladder outlet obstruction. There is no evidence of any a sending infection. Mild bilateral hydroureter was noted. Left renal lesions were noted and a nonemergent renal ultrasound was recommended for further evaluation. Labs include a CBC were white blood cell count, hemoglobin, hematocrit, and platelet count were normal. Chemistry profile showed sodium was 130 with a potassium that was normal. BUN and creatinine were both noted to be normal. Lactic acid was nonelevated at 1.3. There is no elevation of patient's LFTs. Procalcitonin was nonelevated. Urinalysis showed cloudy urine with trace blood. There is 1+ leukocyte Estrace and 10-30 white blood cells per high-power field and no bacteria. The patient did have a bio fire checked which was thus far negative for substances tested. Patient did have tickborne serologies sent which are pending. At the time of my interview the patient was in no distress but did appear somewhat uncomfortable. Allergies Allergy/AdvReac Type Severity Reaction Status Date / Time No Known Allergies Allergy Verified 03/10/23 09:18 Home Medications Medication Instructions Recorded Confirmed Type tamsulosin 0.4 mg capsule 0.4 mg PO DAILY #90 caps 01/05/23 03/11/23 Rx atorvastatin 40 mg tablet 40 mg PO PM 02/27/23 03/11/23 History fluticasone propionate 50 2 spray intranasal DAILY 02/27/23 03/11/23 History mcg/actuation nasal spray,suspension lisinopril 40 mg tablet 40 mg PO PM 02/27/23 03/11/23 History omeprazole 20 mg capsule,delayed 20 mg PO QPM 02/27/23 03/11/23 History release sulfamethoxazole 800 1 tab PO Q12 10 days #20 tabs 03/07/23 03/11/23 Rx mg-trimethoprim 160 mg tablet (Bactrim DS) amlodipine 5 mg tablet (Norvasc) 10 mg PO QAM 1 month #60 tabs 03/08/23 03/11/23 Rx carvedilol 25 mg tablet 25 mg PO BIDM 1 month #60 tabs 03/08/23 03/11/23 Rx Patient History Medical History CAD (coronary artery disease) Elevated PSA Erectile dysfunction HTN (hypertension) Hyperlipidemia Social History Smoking Status: Never smoker Second Hand Exposure: No; Do You Dip or Chew Tobacco: No; Hx Alcohol Use: No Hx Substance Use: No Preferred Language: Maltese Communication Ability: Effective Senior Electronics Technician Required: No Beliefs That Will Affect Care: None Current Living Situation: Spouse Other Information That Helps Us Care for You: No Feels Safe at Home: Yes Safety Concerns: Feels Safe At This Time Assistive Devices: Hearing Aid - Bilateral and Walker Review of Systems Constitutional: + fever and + chills Eyes: + diplopia Ear, Nose, Mouth, Throat: no hearing loss Respiratory: no cough and no dyspnea Cardiovascular: no chest pain Gastrointestinal: + nausea and + vomiting; no abdominal pain Genitourinary: + as per Subjective / HPI Musculoskeletal: no back pain Integumentary: no rash Neurologic: no localized weakness Physical Exam Constitutional: well developed and well nourished; no acute distress Eyes: no conjunctival abnormality ENMT: Ears: no hearing impairment and no external ear abnormality Mouth: no oropharynx abnormality Neck: trachea midline Respiratory: normal respiratory effort; no respiratory distress and no labored breathing Cardiovascular: Rate/Rhythm: regular rate and regular rhythm Vessels: dorsalis pedis pulses present Gastrointestinal (Abdomen): Abdomen is rotund and soft. It is minimally distended. There is no rigidity to his abdomen. There is no pain with palpation and there is no rebound tenderness or guarding. Musculoskeletal: No calf tenderness Skin: no rashes Neurologic: moves all extremities Genitourinary: No CVA tenderness to percussion bilaterally. Patient's perineum was examined and there is no areas of redness or excoriation. There are no open areas or areas of drainage. There is no crepitus noted in the soft tissue. Results & Data Vital Signs (Past 12 Hours) Vital Signs Temp Pulse Pulse Resp BP BP Pulse Ox 03/11/23 21:00 84 17 159/83 H 98 03/11/23 19:00 37.4 C 74 17 159/83 H 95 03/11/23 15:23 68 03/11/23 15:23 71 03/11/23 15:23 72 20 124/60 95 03/11/23 14:27 38.5 C H 66 20 102/56 L 89 L O2 Del Method O2 Flow Rate 03/11/23 21:00 Room Air 03/11/23 19:00 Nasal Cannula 2 03/11/23 15:23 03/11/23 15:23 03/11/23 15:23 Room Air 03/11/23 14:27 Room Air PG Care Time/CCT Total # of Minutes Spent Total Time Spent with Patient: Total time spent is greater than 50% in coordination of care (as documented) at patient's floor/unit and/or counseling patient: Coding Level of Care Code 53798 INT INP/OBS CARE 3/75MIN Diagnoses Sepsis A41.9 Urinary tract infection N39.0 Renal lesion N28.9
[2023-03-11] MEDS ORDERED: ACETAMINOPHEN 500 MG TAB PO PRN (23:02)
[2023-03-11] MEDS: ONDANSETRON INJ 2 MG/ML 2 ML VIAL IV PRN (23:24)
[2023-03-12] MEDS: ATORVASTATIN 40 MG TAB PO SCH ×2 (00:35→21:03)
[2023-03-12] MEDS: PANTOprazole 40 MG TAB PO SCH ×2 (00:36→21:02)
[2023-03-12] MEDS: lisinopril 40 MG TAB PO SCH ×2 (00:36→21:02)
[2023-03-12] MEDS: ACETAMINOPHEN 1,000 MG/100 ML VIAL IV PRN ×3 (01:01→19:53)
[2023-03-12] MEDS: CEFEPIME 2,000 MG in SYRINGE 0 ML IV SCH ×2 (06:18→17:09)
[2023-03-12] MEDS: amLODIPine BESYLATE 5 MG TAB PO SCH (08:06)
[2023-03-12] MEDS: carvediloL 25 MG TAB PO SCH ×2 (08:06→17:09)
[2023-03-12] MEDS: TAMSULOSIN HCL 0.4 MG CAP PO SCH (08:07)
[2023-03-12 10:01] LABS: Hemoglobin 13.8 g/dl (14.0-18.0); Mean Corpuscular Hemoglobin 30.4 pg (25.0-34.0); Mean Corpuscular Hgb Conc 33.7 g/dL (32.0-36.0); Mean Corpuscular Volume 90.3 fL (80.0-100.0); Mean Platelet Volume 9.5 fL (9.4-12.4); Platelet Count 215 K/uL (130-400); RDW Coefficient of Variation 14.5 % (11.5-14.5); Red Blood Count 4.54 M/uL (4.70-6.10); White Blood Count 8.54 K/ul (4.8-10.8)
[2023-03-12 10:23] LABS: Albumin Level 3.3 gm/dl (3.4-5.0); BUN Creatinine Ratio 13.5 (10-20); Bilirubin,Total 0.5 mg/dl (0.2-1.0); Calcium 8.6 mg/dl (8.6-10.3); Creatinine Clr Calc Pharmacy 75.6 ml/min; Est GFR (African American) 65.6 ml/min; Est GFR (Non-African American) 56.6 ml/min; Globulin 3.3 gm/dl (2.5-4.0); Potassium 4.6 mmol/L (3.5-5.1); Total Protein 6.6 gm/dl (6.0-8.3)
[2023-03-12] MEDS: ONDANSETRON INJ 2 MG/ML 2 ML VIAL IV PRN ×2 (10:28→20:02)
--- NOTE | 2023-03-12 10:28 | Urology Progress Note ---
Date of Service March 12, 2023 Assessment & Plan (1) Complicated UTI (urinary tract infection): (2) Sepsis: (3) Fever: Plan: Follow-up of complicated UTI, sepsis He is s/p prostate needle biopsy on 02/26/2023; subsequent hospitalizations for fever/UTI and then urinary retention Patient febrile overnight, Tmax 39; hemodynamically stable Today's labscreatinine 1.26, WBC 8.54, hemoglobin 13.8 Urine and blood cultures are pending Currently on IV cefepime Recommend continue broad-spectrum antibiotics and narrow per sensitivity data when available - will need several weeks of antibiotics per C&S CT imaging without evidence of prostate abscess He is voiding spontaneously and denies difficulty Discussed placement of Banuelos catheter, but he declines at present Recommend monitor post void residual bladder scans Recommend Banuelos if there is evidence of urinary retention Continue antibiotics and supportive care per hospital medicine service Spoke to daughter via phone at bedside to give update will follow (4) Renal lesion: Plan: Can f/u as outpatient for further evaluation and management Admission and Anticipated Discharge Date Admission Date: March 11, 2023 Subjective Patient is seen and examined at bedside this morning, chart reviewed Febrile overnight, Tmax 39 Reports fever and sweats overnight Denies pain at present Mild nausea, no vomiting this morning Voiding without difficulty Notes occasional dysuria, no hematuria Review of Systems Constitutional: as per Subjective / HPI Gastrointestinal: as per Subjective / HPI Genitourinary: + as per Subjective / HPI Physical Exam Physical Exam: General: obese, no acute distress HEENT: Normocephalic, mucous membranes moist Pulmonary: Nonlabored respirations, supplemental O2 in place Abdomen: Nondistended, soft, nontender Extremities: Moves all 4 spontaneously Neuro: No gross deficits Psych: alert and oriented, normal mood Skin: slightly diaphoretic : urinal at bedside with concentrated yellow urine Results & Data Vital Signs (Past 12 Hours) Vital Signs Temp Pulse Resp BP Pulse Ox O2 Del Method O2 Flow Rate 03/12/23 07:40 Nasal Cannula 3 03/12/23 07:14 38.1 C H 85 18 144/73 H 94 Nasal Cannula 3 03/12/23 02:30 37.1 C 03/12/23 02:00 38 C H 03/12/23 01:44 38.8 C H 03/12/23 01:15 39 C H 03/11/23 23:05 38 C H 95 H 18 151/68 H 95 Nasal Cannula 3 PG Care Time/CCT Total # of Minutes Spent Total Time Spent with Patient: Total time spent is greater than 50% in coordination of care (as documented) at patient's floor/unit and/or counseling patient: Coding Level of Care Code 17496 SUB INP/OBS CARE 2/35MIN Diagnoses Complicated UTI (urinary tract infection) N39.0 Sepsis A41.9 Fever R50.9 Renal lesion N28.9
--- NOTE | 2023-03-12 13:50 | Ultrasound Report ---
RENAL ULTRASOUND HISTORY: Follow-up study in a patient with indeterminate left-sided renal lesions Renal lesions on C T COMPARISON: CT 03/11/2023 FINDINGS: Right kidney: 12.3 cm. No hydronephrosis. Normal corticomedullary differentiation and cortical thickn ess. Left kidney: 13.5 cm. There is a hypoechoic exophytic probable cyst of the interpolar left kidney dinah suring 2.0 x 1.7 x 2.2 cm containing a 4 mm echogenic focus, possibly a calcification. No color flow within this lesion. Additionally, there is an exophytic 1.7 x 1.3 x 1.8 cm hypoechoic lesion without definite color flow. No hydronephrosis. Normal corticomedullary differentiation and cortical thicknes s. Bladder: Urinary bladder wall thickening suggestive of chronic outlet obstruction. Partial distention . The bilateral ureteral jets were identified. Markedly enlarged heterogeneous prostate. IMPRESSION: 1. Indeterminate 1.8 cm exophytic lesion of the inferior pole left kidney may be solid however demons trates no apparent color flow. Correlation with nonemergent follow-up CT or MRI renal protocol recomm ended in order to exclude a renal cell carcinoma. 2. No hydronephrosis. 3. Marked prostamegaly with evidence of chronic outlet obstruction. ACT 112: Negative or not required by law. Electronically signed by: Chapo Esparza M.D. 03/12/2023 1:48 PM
--- NOTE | 2023-03-12 15:41 | Hospitalist Progress Note ---
Date of Service March 12, 2023 Assessment & Plan (1) Sepsis: Plan: presumed urinary tract in etiology but urine cx negative. this does not rule out UTI, and in some cases of prostatitis the culture is negative. other source could be pulmonary - dense b/l rales on exam. cont cefepime. follow blood cx's. ?bronchiectasis on CT a/p - will obtain diagnostic chest CT and go from there. cont supportive care. (2) Complicated UTI (urinary tract infection): Plan: 02/27/23 e.coli UTI. treated adequately. culture this admission negative. if no pulmonary source, and if tick-borne labs are negative - would Rx for prostatitis given prolonged russo usage, prostate biopsy recently, etc. (3) Prostatitis, acute: Plan: see above (4) Metabolic encephalopathy: Plan: 2nd sepsis improved today (5) Acute hyponatremia: Plan: Na 129 today check Uosm and Sepideh results will dictate Rx looks euvolemic today (6) Urinary retention: Plan: Russo removal on 03/10 No LUTS since removal Cont flomax (7) Renal lesion: Plan: left s/p ultrasound -- complex cyst likely will need ongoing surveillance by urology (8) Acute hypoxic respiratory failure: Plan: CT chest - r/o chronic lung disease, r/o pneumonia wean O2 as tolerated (9) CAD (coronary artery disease): Plan: Continue atorvastatin, carvedilol, lisinopril No ischemic symptoms (10) Hyperlipidemia: Plan: Continue atorvastatin (11) HTN (hypertension): Plan: Continue lisinopril, amlodipine, carvedilol controlled (12) GERD (gastroesophageal reflux disease): Plan: Continue PPI Plan DVT prophylaxis: Lovenox order PT/OT evals son updated Admission and Anticipated Discharge Date Admission Date: March 11, 2023 Subjective patient reports ongoing fevers appetite is poor fatigued denies dysuria denies scrotal pain denies perineal pain denies abd pain no cough or dyspnea he has no chronic lung disease to his knowledge denies any chronic cough/dyspnea no recent travel no sick contacts son at bedside & updated Review of Systems Review of Systems: cv - no cp pulm - no cough or sputum GI - emesis yesterday, none today - no LUTS Physical Exam Physical Exam: gen - NAD, looks sick but nontoxic mouth - MMM neck - no JVD heart - RRR, s1 s2, no murmur lungs - b/l basilar rales, no wheeze, no increased work of breathing abd - soft NT ND BS+; no suprapubic pain ext - no edema, pulses 2+ b/l psych - a/o x 3 Results & Data Results & Data Vital Signs (Past 12 Hours) Vital Signs Temp Pulse Pulse Resp BP Pulse Ox O2 Del Method 03/12/23 14:52 37.1 C 63 17 119/71 96 Nasal Cannula 03/12/23 10:40 38.4 C H 03/12/23 07:40 Nasal Cannula 03/12/23 07:14 38.1 C H 85 18 144/73 H 94 Nasal Cannula O2 Flow Rate 03/12/23 14:52 3 03/12/23 10:40 03/12/23 07:40 3 03/12/23 07:14 3 Laboratory Results Laboratory Results - last 48 hr 03/11/23 03/11/23 03/11/23 15:08 15:08 15:08 WBC 9.33 RBC 4.87 Hgb 14.6 Hct 44.3 MCV 91.0 MCH 30.0 MCHC 33.0 RDW Std Deviation 47.0 H RDW Coeff of Amor 13.9 Plt Count 262 MPV 9.4 Immature Gran % (Auto) 1.6 Neut % (Auto) 86.9 Lymph % (Auto) 7.2 [place] % (Auto) 3.5 Eos % (Auto) 0.3 Baso % (Auto) 0.5 Neut # (Auto) 8.10 H Lymph # (Auto) 0.67 L [place] # (Auto) 0.33 Eos # (Auto) 0.03 Baso # (Auto) 0.05 Immature Gran # (Auto) 0.15 Sodium Cancelled Potassium Cancelled Chloride Cancelled Carbon Dioxide Cancelled Anion Gap Cancelled BUN Cancelled Creatinine Cancelled Est Cr Clr Drug Dosing Cancelled Est GFR ( Amer) Cancelled Est GFR (Non-Af Amer) Cancelled BUN/Creatinine Ratio Cancelled Glucose Cancelled POC Glucose Osmolality Lactate 1.3 Calcium Cancelled Magnesium Cancelled Total Bilirubin Cancelled Direct Bilirubin Cancelled AST Cancelled ALT Cancelled Alkaline Phosphatase Cancelled Total Protein Cancelled Albumin Cancelled Globulin Albumin/Globulin Ratio Procalcitonin Urine Color Urine Appearance Urine pH Ur Specific [place] Urine Protein Urine Glucose (UA) Urine Ketones Urine Blood Urine Nitrite Urine Bilirubin Urine Urobilinogen Ur Leukocyte Esterase Urine WBC (Auto) Urine RBC (Auto) U Hyaline Cast (Auto) U Epithel Cells (Auto) Urine Bacteria (Auto) Urine Osmolality Ur Random Sodium Adenovirus (PCR) Anaplasma Smear Babesia Smear B. pertussis DNA (PCR) B.parapertussis DNA PCR Lyme Disease IgG Ab Lyme Disease IgM Ab C. pneumoniae DNA (PCR) Coronavirus OC43 (PCR) Coronavirus HKU1 (PCR) Coronavirus 229E (PCR) SARS-CoV-2 (PCR) Coronavirus NL63 (PCR) Human Metapneumovir PCR Influenza Type A (PCR) Influenza Type B (PCR) M. pneumoniae (PCR) Parainfluenza 1 (PCR) Parainfluenza 2 (PCR) Parainfluenza 3 (PCR) Parainfluenza 4 (PCR) RSV (PCR) Entero/Rhino (PCR) 03/11/23 03/11/23 03/11/23 15:08 15:08 15:08 WBC RBC Hgb Hct MCV MCH MCHC RDW Std Deviation RDW Coeff of Amor Plt Count MPV Immature Gran % (Auto) Neut % (Auto) Lymph % (Auto) [place] % (Auto) Eos % (Auto) Baso % (Auto) Neut # (Auto) Lymph # (Auto) [place] # (Auto) Eos # (Auto) Baso # (Auto) Immature Gran # (Auto) Sodium Potassium Chloride Carbon Dioxide Anion Gap BUN Creatinine Est Cr Clr Drug Dosing Est GFR ( Amer) Est GFR (Non-Af Amer) BUN/Creatinine Ratio Glucose POC Glucose Osmolality Lactate Calcium Magnesium Total Bilirubin Direct Bilirubin AST ALT Alkaline Phosphatase Total Protein Albumin Globulin Albumin/Globulin Ratio Procalcitonin Cancelled Urine Color Dark Yellow Urine Appearance Cloudy A Urine pH 5.5 Ur Specific [place] 1.027 Urine Protein 1+ H Urine Glucose (UA) Negative Urine Ketones Negative Urine Blood Trace H Urine Nitrite Negative Urine Bilirubin 1+ H Urine Urobilinogen Negative Ur Leukocyte Esterase 1+ H Urine WBC (Auto) 10-30 H Urine RBC (Auto) 5-10 H U Hyaline Cast (Auto) 10-30 H U Epithel Cells (Auto) 20-30 H Urine Bacteria (Auto) Negative Urine Osmolality Ur Random Sodium Adenovirus (PCR) Anaplasma Smear See Comment Babesia Smear See Comment B. pertussis DNA (PCR) B.parapertussis DNA PCR Lyme Disease IgG Ab Lyme Disease IgM Ab C. pneumoniae DNA (PCR) Coronavirus OC43 (PCR) Coronavirus HKU1 (PCR) Coronavirus 229E (PCR) SARS-CoV-2 (PCR) Coronavirus NL63 (PCR) Human Metapneumovir PCR Influenza Type A (PCR) Influenza Type B (PCR) M. pneumoniae (PCR) Parainfluenza 1 (PCR) Parainfluenza 2 (PCR) Parainfluenza 3 (PCR) Parainfluenza 4 (PCR) RSV (PCR) Entero/Rhino (PCR) 03/11/23 03/11/23 03/11/23 15:19 16:43 16:43 WBC RBC Hgb Hct MCV MCH MCHC RDW Std Deviation RDW Coeff of Amor Plt Count MPV Immature Gran % (Auto) Neut % (Auto) Lymph % (Auto) [place] % (Auto) Eos % (Auto) Baso % (Auto) Neut # (Auto) Lymph # (Auto) [place] # (Auto) Eos # (Auto) Baso # (Auto) Immature Gran # (Auto) Sodium 130 L Potassium 4.6 Chloride 104 Carbon Dioxide 20 L Anion Gap 6 BUN 20 Creatinine 1.15 Est Cr Clr Drug Dosing 82.8 Est GFR ( Amer) 73.3 Est GFR (Non-Af Amer) 63.2 BUN/Creatinine Ratio 17.4 Glucose 116 H POC Glucose Osmolality Lactate Calcium 8.2 L Magnesium 1.7 Total Bilirubin 0.5 Direct Bilirubin 0.1 AST 25 ALT 38 Alkaline Phosphatase 83 Total Protein 6.1 Albumin 3.2 L Globulin Albumin/Globulin Ratio Procalcitonin 0.33 Urine Color Urine Appearance Urine pH Ur Specific [place] Urine Protein Urine Glucose (UA) Urine Ketones Urine Blood Urine Nitrite Urine Bilirubin Urine Urobilinogen Ur Leukocyte Esterase Urine WBC (Auto) Urine RBC (Auto) U Hyaline Cast (Auto) U Epithel Cells (Auto) Urine Bacteria (Auto) Urine Osmolality Ur Random Sodium Adenovirus (PCR) Not Detected Anaplasma Smear Babesia Smear B. pertussis DNA (PCR) Not Detected B.parapertussis DNA PCR Not Detected Lyme Disease IgG Ab Lyme Disease IgM Ab C. pneumoniae DNA (PCR) Not Detected Coronavirus OC43 (PCR) Not Detected Coronavirus HKU1 (PCR) Not Detected Coronavirus 229E (PCR) Not Detected SARS-CoV-2 (PCR) Not Detected Coronavirus NL63 (PCR) Not Detected Human Metapneumovir PCR Not Detected Influenza Type A (PCR) Not Detected Influenza Type B (PCR) Not Detected M. pneumoniae (PCR) Not Detected Parainfluenza 1 (PCR) Not Detected Parainfluenza 2 (PCR) Not Detected Parainfluenza 3 (PCR) Not Detected Parainfluenza 4 (PCR) Not Detected RSV (PCR) Not Detected Entero/Rhino (PCR) Not Detected 03/11/23 03/12/23 03/12/23 16:43 09:33 09:33 WBC 8.54 RBC 4.54 L Hgb 13.8 L Hct 41.0 L MCV 90.3 MCH 30.4 MCHC 33.7 RDW Std Deviation 48.0 H RDW Coeff of Amor 14.5 Plt Count 215 MPV 9.5 Immature Gran % (Auto) Neut % (Auto) Lymph % (Auto) [place] % (Auto) Eos % (Auto) Baso % (Auto) Neut # (Auto) Lymph # (Auto) [place] # (Auto) Eos # (Auto) Baso # (Auto) Immature Gran # (Auto) Sodium 129 L Potassium 4.6 Chloride 100 Carbon Dioxide 24 Anion Gap 5 BUN 17 Creatinine 1.26 Est Cr Clr Drug Dosing 75.6 Est GFR ( Amer) 65.6 Est GFR (Non-Af Amer) 56.6 BUN/Creatinine Ratio 13.5 Glucose 127 H POC Glucose Osmolality Lactate Calcium 8.6 Magnesium Total Bilirubin 0.5 Direct Bilirubin AST 37 ALT 50 Alkaline Phosphatase 85 Total Protein 6.6 Albumin 3.3 L Globulin 3.3 Albumin/Globulin Ratio 1.0 Procalcitonin Urine Color Urine Appearance Urine pH Ur Specific [place] Urine Protein Urine Glucose (UA) Urine Ketones Urine Blood Urine Nitrite Urine Bilirubin Urine Urobilinogen Ur Leukocyte Esterase Urine WBC (Auto) Urine RBC (Auto) U Hyaline Cast (Auto) U Epithel Cells (Auto) Urine Bacteria (Auto) Urine Osmolality Ur Random Sodium Adenovirus (PCR) Anaplasma Smear Babesia Smear B. pertussis DNA (PCR) B.parapertussis DNA PCR Lyme Disease IgG Ab Negative Lyme Disease IgM Ab Negative C. pneumoniae DNA (PCR) Coronavirus OC43 (PCR) Coronavirus HKU1 (PCR) Coronavirus 229E (PCR) SARS-CoV-2 (PCR) Coronavirus NL63 (PCR) Human Metapneumovir PCR Influenza Type A (PCR) Influenza Type B (PCR) M. pneumoniae (PCR) Parainfluenza 1 (PCR) Parainfluenza 2 (PCR) Parainfluenza 3 (PCR) Parainfluenza 4 (PCR) RSV (PCR) Entero/Rhino (PCR) 03/12/23 03/12/23 03/12/23 11:25 Unknown Unknown WBC RBC Hgb Hct MCV MCH MCHC RDW Std Deviation RDW Coeff of Amor Plt Count MPV Immature Gran % (Auto) Neut % (Auto) Lymph % (Auto) [place] % (Auto) Eos % (Auto) Baso % (Auto) Neut # (Auto) Lymph # (Auto) [place] # (Auto) Eos # (Auto) Baso # (Auto) Immature Gran # (Auto) Sodium Potassium Chloride Carbon Dioxide Anion Gap BUN Creatinine Est Cr Clr Drug Dosing Est GFR ( Amer) Est GFR (Non-Af Amer) BUN/Creatinine Ratio Glucose POC Glucose 105 H Osmolality Lactate Calcium Magnesium Total Bilirubin Direct Bilirubin AST ALT Alkaline Phosphatase Total Protein Albumin Globulin Albumin/Globulin Ratio Procalcitonin Urine Color Urine Appearance Urine pH Ur Specific [place] Urine Protein Urine Glucose (UA) Urine Ketones Urine Blood Urine Nitrite Urine Bilirubin Urine Urobilinogen Ur Leukocyte Esterase Urine WBC (Auto) Urine RBC (Auto) U Hyaline Cast (Auto) U Epithel Cells (Auto) Urine Bacteria (Auto) Urine Osmolality 717 Ur Random Sodium 30 Adenovirus (PCR) Anaplasma Smear Babesia Smear B. pertussis DNA (PCR) B.parapertussis DNA PCR Lyme Disease IgG Ab Lyme Disease IgM Ab C. pneumoniae DNA (PCR) Coronavirus OC43 (PCR) Coronavirus HKU1 (PCR) Coronavirus 229E (PCR) SARS-CoV-2 (PCR) Coronavirus NL63 (PCR) Human Metapneumovir PCR Influenza Type A (PCR) Influenza Type B (PCR) M. pneumoniae (PCR) Parainfluenza 1 (PCR) Parainfluenza 2 (PCR) Parainfluenza 3 (PCR) Parainfluenza 4 (PCR) RSV (PCR) Entero/Rhino (PCR) Diagnostic Findings blood/urine cx negative PG Care Time/CCT Total # of Minutes Spent Total Time Spent with Patient: Total time spent is greater than 50% in coordination of care (as documented) at patient's floor/unit and/or counseling patient: Coding Level of Care Code 82188 SUB INP/OBS CARE 235MIN Diagnoses Sepsis A41.9 Complicated UTI (urinary tract infection) N39.0 Prostatitis, acute N41.0 Metabolic encephalopathy G93.41 Acute hyponatremia E87.1 Urinary retention R33.9 Renal lesion N28.9 Acute hypoxic respiratory failure J96.01 CAD (coronary artery disease) I25.10 Hyperlipidemia E78.5 HTN (hypertension) I10 GERD (gastroesophageal reflux disease) K21.9
[2023-03-12] MEDS: SODIUM CHLORIDE 1 GM TABLET PO SCH (17:09)
--- NOTE | 2023-03-12 17:20 | Billing Data ---
Date of Service March 12, 2023 Coding Level of Care Code 89466 INT INP/OBS CARE
[2023-03-13] MEDS: SODIUM CHLORIDE 1 GM TABLET PO SCH ×2 (05:16→17:21)
[2023-03-13] MEDS: ACETAMINOPHEN 1,000 MG/100 ML VIAL IV PRN (05:16)
[2023-03-13] MEDS: CEFEPIME 2,000 MG in SYRINGE 0 ML IV SCH ×2 (05:16→17:24)
[2023-03-13 07:36] LABS: Hematocrit (blood only) 39.5 % (42.0-52.0); Hemoglobin 13.3 g/dl (14.0-18.0); Mean Corpuscular Hemoglobin 30.2 pg (25.0-34.0); Mean Corpuscular Hgb Conc 33.7 g/dL (32.0-36.0); Mean Corpuscular Volume 89.6 fL (80.0-100.0); Mean Platelet Volume 9.7 fL (9.4-12.4); Platelet Count 208 K/uL (130-400); RDW Coefficient of Variation 13.9 % (11.5-14.5); RDW Standard Deviation 45.6 fL (36.4-46.3); Red Blood Count 4.41 M/uL (4.70-6.10); White Blood Count 6.95 K/ul (4.8-10.8)
[2023-03-13 07:44] LABS: BUN Creatinine Ratio 23.2 (10-20); Calcium 8.5 mg/dl (8.6-10.3); Creatinine Clr Calc Pharmacy 100.3 ml/min; Est GFR (African American) 92.3 ml/min; Est GFR (Non-African American) 79.7 ml/min; Potassium 4.3 mmol/L (3.5-5.1)
[2023-03-13] MEDS: carvediloL 25 MG TAB PO SCH ×2 (08:50→17:21)
[2023-03-13] MEDS: amLODIPine BESYLATE 5 MG TAB PO SCH (08:51)
[2023-03-13] MEDS: TAMSULOSIN HCL 0.4 MG CAP PO SCH (08:51)
[2023-03-13] MEDS ORDERED: FEXOFENADINE 60 MG TAB PO ONE (16:16)
--- NOTE | 2023-03-13 16:32 | CT Scan Report ---
CT chest diagnostic wo con CLINICAL HISTORY: b/l basilar rales, ?bronchiectasis on other CT TECHNIQUE: Multidetector row helical CT of the chest was performed. Coronal and sagittal reformations were obtained. Automated dose lowering techniques and/or adjustment according to patient size were u tilized for this exam. CT DOSE: 878.92 mGy.cm Comparison: Comparison is made to CT abdomen pelvis 03/04/2023 FINDINGS: Lungs and pleura: There are are trace bilateral pleural effusions with atelectasis. Bronchiectasis is noted. A few pulmonary nodules are seen including a 3 mm nodule in the left upper lobe (series 4 [id number] ge [id number]) and a 7 mm nodule in the lingula (image 163). A left major fissure nodule may represent a pare nchymal lymph node. Heart and pericardium: Heart size is normal. No pericardial effusion. Vessels: Postsurgical changes of coronary artery bypass graft. Extensive atherosclerotic disease is s een. Mediastinum and taylor: Subcentimeter lymph nodes are seen. Chest wall and lower neck: Unremarkable. Abdomen: Unremarkable. Bones: Degenerative changes in the thoracic spine. IMPRESSION: 1. Trace bilateral pleural effusions with underlying atelectasis. No evidence of pneumonia. 2. Pulmonary nodules as above. According to Fleischner criteria, CT chest should be performed at 6-1 2 months. In high-risk patients, a 18-24 month follow-up is recommended, in low-risk patients, this 1 8-24 month follow-up CT is optional. ACT 112: Positive. There are findings on this exam that require communication between the performing entity and the patient following Patient Test Result Information Act ([place] Act 112) guidelines. Electronically signed by: Lalo Lopez M.D. 03/13/2023 4:30 PM
[2023-03-13 16:41] LABS: Basophils # (auto) 0.04 K/uL (0.00-0.20); Basophils % (auto) 0.6 %; Eosinophils # (auto) 0.28 K/uL (0.00-0.50); Immature Granulocytes # (auto) 0.05 K/uL (0.01-0.20); Immature Granulocytes % (auto) 0.7 %; Lymphocytes # (auto) 1.06 K/uL (1.20-3.40); Lymphocytes % (auto) 15.2 %; Monocytes % (auto) 4.3 %; Neutrophils # (auto) 5.26 K/uL (1.40-6.50); Neutrophils % (auto) 75.2 %
[2023-03-13] MEDS: MICONAZOLE NITRATE POWDER 85 GM EXT SCH ×2 (17:21→20:28)
[2023-03-13] MEDS: NYSTATIN SUSP 500,000 U/5 ML UDC PO SCH ×2 (17:21→20:28)
[2023-03-13] MEDS: TRIAMCINOLONE ACET 0.1% CR 80 GM TUBE EXT SCH ×2 (17:38→20:28)
--- NOTE | 2023-03-13 19:29 | Hospitalist Progress Note ---
Date of Service March 13, 2023 Assessment & Plan (1) Sepsis: Plan: presumed urinary tract in etiology but urine cx negative. this does not rule out UTI, and in some cases of prostatitis the culture is negative. CT chest without pneumonia. [employer] resp panel negative. lyme negative. blood cultures remain negative. cont cefepime. suspect fevers will fully resolve next 24 hours. (2) Complicated UTI (urinary tract infection): Plan: 02/27/23 e.coli UTI. required hospitalization x 2 (late January, then early February). was given a course of bactrim for prostatitis. 10 days was given. this simply may not have been enough time to clear acute prostatitis. urine culture this admission negative. since no pulmonary source, blood cx's negative, and tick-borne labs thus far are negative - would Rx for prostatitis given prolonged russo usage, prostate biopsy recently, e.coli in urine in late January, etc. would Rx for 4 weeks minimum. cefdinir at discharge? (3) Prostatitis, acute: Plan: see above (4) Metabolic encephalopathy: Plan: 2nd sepsis resolved (5) Acute hyponatremia: Plan: Na 129 yesterday 130 today Uosm markedly elevated Urine Na noted 30 hyponatremia somewhat chronic based on EMR results start naCl tabs 1gm BID trend serum Na levels looks euvolemic today (6) Urinary retention: Plan: Russo removal on 03/10 No LUTS since removal Cont flomax (7) Renal lesion: Plan: left s/p ultrasound -- complex cyst likely will need ongoing surveillance by urology (8) Acute hypoxic respiratory failure: Plan: CT chest reviewed with Dr Lopez from radiology NO pneumonia Mild bronchiectasis in the bases but no ILD, etc Suspect atelectasis is causing his mild hypoxia needs to ambulate better pulmonary toilet - flutter valve, incentive wean O2 as tolerated during the day may need night-time O2 - suspect he has severe KARLOS (family reports SEVERE snoring) (9) CAD (coronary artery disease): Plan: Continue atorvastatin, carvedilol, lisinopril No ischemic symptoms (10) Hyperlipidemia: Plan: Continue atorvastatin (11) HTN (hypertension): Plan: Continue lisinopril, amlodipine, carvedilol controlled (12) GERD (gastroesophageal reflux disease): Plan: Continue PPI (13) Rash: Plan: back, face, upper chest, etc drug reaction ? but not pruritic contact/irritant dermatitis? viral? other? favor irritant etiology will treat symptomatically for now [place] triamcinolone cream TID in thin amounts -- avoid face, however (14) Candidal diaper rash: Plan: miconazole powder TID to scrotum and groin liberally (15) Candidiasis of mouth and esophagus: Plan: start nystatin swish - 5cc qid Plan DVT prophylaxis: Lovenox ordered PT/OT evals son, daughter, and updated at bedside today Admission and Anticipated Discharge Date Admission Date: March 11, 2023 Subjective patient still requiring a little O2 - 1.5 L although no documented hypoxia in the last 24-36 hours no dyspnea no cough still weak eating IS better no BM in several days nausea/vomiting have fully resoled; tolerating his meals no LUTS family at bedside during the visit Review of Systems Review of Systems: gen - fevers/chills overnight, but none during the day today; feels better cv - no chest pain GI - no abd pain Physical Exam Physical Exam: gen - NAD, looks better today mouth - MMM, ?thrush findings (mild patches of erythema on mucosa) neck - no JVD heart - RRR, s1 s2, no murmur lungs - b/l basilar rales L>R; no wheeze, no increased work of breathing, good airation abd - soft NT ND BS+; no suprapubic pain ext - no edema, pulses 2+ b/l psych - a/o x 3 skin - erythematous rash covering most of back, upper chest, neck, face, and inner portion of both upper arms; NOT pruritic; candidal rash scrotum and groin Results & Data Results & Data Vital Signs (Past 12 Hours) Vital Signs Temp Pulse Resp BP Pulse Ox O2 Del Method O2 Flow Rate 03/13/23 14: 37.0 C 67 16 115/66 94 Nasal Cannula 2 03/13/23 08:00 Nasal Cannula 1.5 03/13/23 07:37 36.9 C 63 17 126/69 93 Nasal Cannula 2 Laboratory Results Laboratory Results - last 48 hr 03/12/23 03/12/23 03/12/23 09:33 09:33 11:25 WBC 8.54 RBC 4.54 L Hgb 13.8 L Hct 41.0 L MCV 90.3 MCH 30.4 MCHC 33.7 RDW Std Deviation 48.0 H RDW Coeff of Amor 14.5 Plt Count 215 MPV 9.5 Immature Gran % (Auto) 0.7 Neut % (Auto) 75.2 Lymph % (Auto) 15.2 [place] % (Auto) 4.3 Eos % (Auto) 4.0 Baso % (Auto) 0.6 Neut # (Auto) 5.26 Lymph # (Auto) 1.06 L [place] # (Auto) 0.30 Eos # (Auto) 0.28 Baso # (Auto) 0.04 Immature Gran # (Auto) 0.05 Sodium 129 L Potassium 4.6 Chloride 100 Carbon Dioxide 24 Anion Gap 5 BUN 17 Creatinine 1.26 Est Cr Clr Drug Dosing 75.6 Est GFR ( Amer) 65.6 Est GFR (Non-Af Amer) 56.6 BUN/Creatinine Ratio 13.5 Glucose 127 H POC Glucose 105 H Osmolality Calcium 8.6 Total Bilirubin 0.5 AST 37 ALT 50 Alkaline Phosphatase 85 Total Protein 6.6 Albumin 3.3 L Globulin 3.3 Albumin/Globulin Ratio 1.0 Urine Osmolality Ur Random Sodium 03/12/23 03/12/23 03/13/23 Unknown Unknown 06:53 WBC 6.95 RBC 4.41 L Hgb 13.3 L Hct 39.5 L MCV 89.6 MCH 30.2 MCHC 33.7 RDW Std Deviation 45.6 RDW Coeff of Amor 13.9 Plt Count 208 MPV 9.7 Immature Gran % (Auto) Neut % (Auto) Lymph % (Auto) [place] % (Auto) Eos % (Auto) Baso % (Auto) Neut # (Auto) Lymph # (Auto) [place] # (Auto) Eos # (Auto) Baso # (Auto) Immature Gran # (Auto) Sodium Potassium Chloride Carbon Dioxide Anion Gap BUN Creatinine Est Cr Clr Drug Dosing Est GFR ( Amer) Est GFR (Non-Af Amer) BUN/Creatinine Ratio Glucose POC Glucose Osmolality Calcium Total Bilirubin AST ALT Alkaline Phosphatase Total Protein Albumin Globulin Albumin/Globulin Ratio Urine Osmolality 717 Ur Random Sodium 30 03/13/23 03/13/23 06:53 06:53 WBC RBC Hgb Hct MCV MCH MCHC RDW Std Deviation RDW Coeff of Amor Plt Count MPV Immature Gran % (Auto) Neut % (Auto) Lymph % (Auto) [place] % (Auto) Eos % (Auto) Baso % (Auto) Neut # (Auto) Lymph # (Auto) [place] # (Auto) Eos # (Auto) Baso # (Auto) Immature Gran # (Auto) Sodium 130 L Potassium 4.3 Chloride 102 Carbon Dioxide 21 Anion Gap 7 BUN 22 Creatinine 0.95 D Est Cr Clr Drug Dosing 100.3 Est GFR ( Amer) 92.3 Est GFR (Non-Af Amer) 79.7 BUN/Creatinine Ratio 23.2 H Glucose 100 H POC Glucose Osmolality 273 L Calcium 8.5 L Total Bilirubin AST ALT Alkaline Phosphatase Total Protein Albumin Globulin Albumin/Globulin Ratio Urine Osmolality Ur Random Sodium Diagnostic Findings Chest CT 03/12/23 16:01 CT chest diagnostic wo con CLINICAL HISTORY: b/l basilar rales, ?bronchiectasis on other CT TECHNIQUE: Multidetector row helical CT of the chest was performed. Coronal and sagittal reformations were obtained. Automated dose lowering techniques and/or adjustment according to patient size were utilized for this exam. CT DOSE: 878.92 mGy.cm Comparison: Comparison is made to CT abdomen pelvis 03/04/2023 FINDINGS: Lungs and pleura: There are are trace bilateral pleural effusions with atelectasis. Bronchiectasis is noted. A few pulmonary nodules are seen including a 3 mm nodule in the left upper lobe (series 4 image 61) and a 7 mm nodule in the lingula (image 163). A left major fissure nodule may represent a parenchymal lymph node. Heart and pericardium: Heart size is normal. No pericardial effusion. Vessels: Postsurgical changes of coronary artery bypass graft. Extensive atherosclerotic disease is seen. Mediastinum and taylor: Subcentimeter lymph nodes are seen. Chest wall and lower neck: Unremarkable. Abdomen: Unremarkable. Bones: Degenerative changes in the thoracic spine. IMPRESSION: 1. Trace bilateral pleural effusions with underlying atelectasis. No evidence of pneumonia. 2. Pulmonary nodules as above. According to Fleischner criteria, CT chest should be performed at 6-12 months. In high-risk patients, a 18-24 month follow- up is recommended, in low-risk patients, this 18-24 month follow-up CT is optional. ACT 112: Positive. There are findings on this exam that require communication between the performing entity and the patient following Patient Test Result Information Act ([place] Act 112) guidelines. Electronically signed by: Lalo Lopez M.D. 03/13/2023 4:30 PM PG Care Time/CCT Total # of Minutes Spent Total Time Spent with Patient: Total time spent is greater than 50% in coordination of care (as documented) at patient's floor/unit and/or counseling patient: Coding Level of Care Code 22674 SUB INP/OBS CARE 3/50MIN Diagnoses Sepsis A41.9 Complicated UTI (urinary tract infection) N39.0 Prostatitis, acute N41.0 Metabolic encephalopathy G93.41 Acute hyponatremia E87.1 Urinary retention R33.9 Renal lesion N28.9 Acute hypoxic respiratory failure J96.01 CAD (coronary artery disease) I25.10 Hyperlipidemia E78.5 HTN (hypertension) I10 GERD (gastroesophageal reflux disease) K21.9 Rash R21 Candidal diaper rash B37.2; L22 Candidiasis of mouth and esophagus B37.81; B37.0
[2023-03-13] MEDS: lisinopril 40 MG TAB PO SCH (20:27)
[2023-03-13] MEDS: PANTOprazole 40 MG TAB PO SCH (20:27)
[2023-03-13] MEDS: ATORVASTATIN 40 MG TAB PO SCH (20:27)
[2023-03-14] MEDS: CEFEPIME 2,000 MG in SYRINGE 0 ML IV SCH (05:59)
[2023-03-14] MEDS: SODIUM CHLORIDE 1 GM TABLET PO SCH ×3 (06:00→20:35)
[2023-03-14 08:09] LABS: BUN Creatinine Ratio 26.7 (10-20); Calcium 8.1 mg/dl (8.6-10.3); Creatinine Clr Calc Pharmacy 110.8 ml/min; Est GFR (African American) 100.4 ml/min; Est GFR (Non-African American) 86.6 ml/min; Potassium 4.3 mmol/L (3.5-5.1)
[2023-03-14] MEDS ORDERED: ACETAMINOPHEN 500 MG TAB PO PRN (08:14)
[2023-03-14 08:52] LABS: Basophils # (auto) 0.05 K/uL (0.00-0.20); Basophils % (auto) 0.7 %; Eosinophils # (auto) 0.32 K/uL (0.00-0.50); Eosinophils % (auto) 4.3 %; Hematocrit (blood only) 38.8 % (42.0-52.0); Hemoglobin 13.1 g/dl (14.0-18.0); Immature Granulocytes # (auto) 0.02 K/uL (0.01-0.20); Immature Granulocytes % (auto) 0.3 %; Lymphocytes # (auto) 1.61 K/uL (1.20-3.40); Lymphocytes % (auto) 21.7 %; Mean Corpuscular Hemoglobin 30.3 pg (25.0-34.0); Mean Corpuscular Hgb Conc 33.8 g/dL (32.0-36.0); Mean Corpuscular Volume 89.6 fL (80.0-100.0); Mean Platelet Volume 9.9 fL (9.4-12.4); Monocytes % (auto) 8.1 %; Neutrophils # (auto) 4.81 K/uL (1.40-6.50); Neutrophils % (auto) 64.9 %; Platelet Count 214 K/uL (130-400); RDW Coefficient of Variation 14.1 % (11.5-14.5); RDW Standard Deviation 46.4 fL (36.4-46.3); Red Blood Count 4.33 M/uL (4.70-6.10); White Blood Count 7.41 K/ul (4.8-10.8)
[2023-03-14] MEDS: NYSTATIN SUSP 500,000 U/5 ML UDC PO SCH ×4 (09:04→20:35)
[2023-03-14] MEDS: TAMSULOSIN HCL 0.4 MG CAP PO SCH (09:05)
[2023-03-14] MEDS: carvediloL 25 MG TAB PO SCH ×2 (09:05→17:49)
[2023-03-14] MEDS: amLODIPine BESYLATE 5 MG TAB PO SCH (09:05)
[2023-03-14] MEDS: TRIAMCINOLONE ACET 0.1% CR 80 GM TUBE EXT SCH ×3 (09:06→20:35)
[2023-03-14] MEDS: MICONAZOLE NITRATE POWDER 85 GM EXT SCH ×3 (09:07→20:35)
[2023-03-14] MEDS: SENNA 8.6 MG TAB PO SCH (09:11)
[2023-03-14] MEDS: POLYETHYLENE (MIRALAX) 17 GM PACK PO SCH (09:11)
[2023-03-14] MEDS: FEXOFENADINE 60 MG TAB PO SCH ×2 (09:11→20:34)
--- NOTE | 2023-03-14 17:01 | Hospitalist Progress Note ---
Date of Service March 14, 2023 Assessment & Plan (1) Sepsis: Plan: IMPROVED/resolving. presumed urinary tract in etiology but urine cx negative. this does not rule out UTI, and in some cases of prostatitis the culture is negative. suspect PROSTATITIS (was treated for such last admission - d/c on 03/08/23 with 10 day course of PO bactrim) CT chest without pneumonia. [employer] resp panel negative. lyme negative. blood cultures negative. ? drug rxn to cefepime?? rash is not pruritic, however, and eosinophils only 4%. [id number] the rash is fairly diffuse. to be safe - stop cefepime, change to IV ertapenem once daily. will involve ID to help with this - will need 4 weeks of Rx - uncertain what to Rx him with given the above circumstances. (2) Complicated UTI (urinary tract infection): Plan: 02/27/23 e.coli UTI. required hospitalization x 2 (late January, then early February). was given a course of bactrim for prostatitis. 10 days was given. e.coli was resistant to quinolones. urine culture this admission negative. since no pulmonary source, blood cx's negative, and tick-borne labs thus far are negative - would Rx for prostatitis given prolonged russo usage, prostate biopsy recently, e.coli in urine in late January, etc. would Rx for 4 weeks minimum. uncertain of which abx to use in his case given the ?drug reaction to cefepime? will consult ID ertapenem IV in meantime (3) Prostatitis, acute: Plan: see above highly suspected (4) Metabolic encephalopathy: Plan: 2nd sepsis resolved (5) Acute hyponatremia: Plan: has been low dating back to January Na still mildly low but stable Uosm markedly elevated Urine Na noted 30 hyponatremia somewhat chronic based on EMR results cont naCl tabs but increase to 2gm BID trend serum Na levels looks euvolemic again today (6) Urinary retention: Plan: Russo removal on 03/10 No LUTS since removal Cont flomax (7) Renal lesion: Plan: left s/p ultrasound -- complex cyst likely will need ongoing surveillance by urology (8) Acute hypoxic respiratory failure: Plan: resolved was likely due to atelectasis CT chest reviewed with Dr Lopez from radiology NO pneumonia Mild bronchiectasis in the bases but no ILD, etc cont flutter valve, incentive o2 is off needs w/u for KARLOS (9) CAD (coronary artery disease): Plan: Continue atorvastatin, carvedilol, lisinopril No ischemic symptoms (10) Hyperlipidemia: Plan: Continue atorvastatin (11) HTN (hypertension): Plan: Continue lisinopril, amlodipine, carvedilol controlled (12) GERD (gastroesophageal reflux disease): Plan: Continue PPI (13) Rash: Plan: back, face, upper chest, arms progressive on arms still not pruritic eosinophils not elevated however, I don't think this is irritant rash at this point doubt viral etiology either drug rxn to cefepime?? cont symptomatic Rx [place] BID triamcinolone cream TID in thin amounts -- avoid face, however stop cefepime re-eval tomorrow (14) Candidal diaper rash: Plan: miconazole powder TID to scrotum and groin liberally (15) Candidiasis of mouth and esophagus: Plan: nystatin swish - 5cc qid Plan DVT prophylaxis: Lovenox ordered PT/OT evals son, daughter, and updated at bedside again today Admission and Anticipated Discharge Date Admission Date: March 11, 2023 Subjective sitting in chair feels better eating well still with rash but the rash is NOT pruritic scrotum feels better with antifungal powder no LUTS family at bedside (multiple) needs PT/OT evals but strength has already improved over weekend no longer on O2 Review of Systems Review of Systems: gen - no fevers or chills cv - no chest pain pulm - no dyspnea GI - no abd pain/nausea/emesis Physical Exam Physical Exam: gen - NAD, looks well today mouth - MMM, ?thrush findings (mild patches of erythema on mucosa) - improved neck - no JVD heart - RRR, s1 s2, no murmur lungs - b/l basilar dry rales L>R; no wheeze, no increased work of breathing, good airation abd - soft NT ND BS+; no suprapubic pain ext - no edema, pulses 2+ b/l psych - a/o x 3 skin - erythematous rash covering most of back extending to buttocks; upper chest, neck, face - rash improved; inner portion of both arms -- rash now extends down to the level of the wrists; NOT pruritic; candidal rash scrotum and groin improved Results & Data Results & Data Vital Signs (Past 12 Hours) Vital Signs Temp Pulse Resp BP Pulse Ox O2 Del Method O2 Flow Rate 03/14/23 16:00 36.8 C 62 18 112/61 94 Room Air 03/14/23 08:00 36.6 C 77 18 125/71 94 Room Air 03/14/23 07:00 Nasal Cannula 1.5 Laboratory Results Laboratory Results - last 24 hr 03/14/23 03/14/23 03/14/23 06:53 06:55 13:20 WBC 7.41 RBC 4.33 L Hgb 13.1 L Hct 38.8 L MCV 89.6 MCH 30.3 MCHC 33.8 RDW Std Deviation 46.4 H RDW Coeff of Amor 14.1 Plt Count 214 MPV 9.9 Immature Gran % (Auto) 0.3 Neut % (Auto) 64.9 Lymph % (Auto) 21.7 [place] % (Auto) 8.1 Eos % (Auto) 4.3 Baso % (Auto) 0.7 Neut # (Auto) 4.81 Lymph # (Auto) 1.61 [place] # (Auto) 0.60 H Eos # (Auto) 0.32 Baso # (Auto) 0.05 Immature Gran # (Auto) 0.02 Sodium 130 L Potassium 4.3 Chloride 101 Carbon Dioxide 23 Anion Gap 6 BUN 23 Creatinine 0.86 Est Cr Clr Drug Dosing 110.8 Est GFR ( Amer) 100.4 Est GFR (Non-Af Amer) 86.6 BUN/Creatinine Ratio 26.7 H Glucose 109 H Calcium 8.1 L Urine Osmolality 334 L Ur Random Sodium 03/14/23 13:20 WBC RBC Hgb Hct MCV MCH MCHC RDW Std Deviation RDW Coeff of Amor Plt Count MPV Immature Gran % (Auto) Neut % (Auto) Lymph % (Auto) [place] % (Auto) Eos % (Auto) Baso % (Auto) Neut # (Auto) Lymph # (Auto) [place] # (Auto) Eos # (Auto) Baso # (Auto) Immature Gran # (Auto) Sodium Potassium Chloride Carbon Dioxide Anion Gap BUN Creatinine Est Cr Clr Drug Dosing Est GFR ( Amer) Est GFR (Non-Af Amer) BUN/Creatinine Ratio Glucose Calcium Urine Osmolality Ur Random Sodium 21 Diagnostic Findings blood cx's negative to date PG Care Time/CCT Total # of Minutes Spent Total Time Spent with Patient: Total time spent is greater than 50% in coordination of care (as documented) at patient's floor/unit and/or counseling patient: Coding Level of Care Code 88002 SUB INP/OBS CARE 3/50MIN Diagnoses Sepsis A41.9 Complicated UTI (urinary tract infection) N39.0 Prostatitis, acute N41.0 Metabolic encephalopathy G93.41 Acute hyponatremia E87.1 Urinary retention R33.9 Renal lesion N28.9 Acute hypoxic respiratory failure J96.01 CAD (coronary artery disease) I25.10 Hyperlipidemia E78.5 HTN (hypertension) I10 GERD (gastroesophageal reflux disease) K21.9 Rash R21 Candidal diaper rash B37.2; L22 Candidiasis of mouth and esophagus B37.81; B37.0
[2023-03-14] MEDS: ERTAPENEM SODIUM 1,000 MG in SYRINGE 0 ML IV SCH ×2 (18:33→19:19)
[2023-03-14] MEDS: ATORVASTATIN 40 MG TAB PO SCH (20:35)
[2023-03-14] MEDS: lisinopril 40 MG TAB PO SCH (20:35)
[2023-03-14] MEDS: PANTOprazole 40 MG TAB PO SCH (20:35)
[2023-03-15 07:28] LABS: BUN Creatinine Ratio 22.7 (10-20); Calcium 8.4 mg/dl (8.6-10.3); Creatinine Clr Calc Pharmacy 108.2 ml/min; Est GFR (African American) 99.5 ml/min; Est GFR (Non-African American) 85.8 ml/min; Potassium 4.4 mmol/L (3.5-5.1)
[2023-03-15 07:29] LABS: Basophils # (auto) 0.05 K/uL (0.00-0.20); Basophils % (auto) 0.7 %; Eosinophils # (auto) 0.34 K/uL (0.00-0.50); Eosinophils % (auto) 4.6 %; Hematocrit (blood only) 37.3 % (42.0-52.0); Hemoglobin 12.7 g/dl (14.0-18.0); Immature Granulocytes # (auto) 0.03 K/uL (0.01-0.20); Immature Granulocytes % (auto) 0.4 %; Lymphocytes # (auto) 1.87 K/uL (1.20-3.40); Lymphocytes % (auto) 25.2 %; Mean Corpuscular Hemoglobin 30.2 pg (25.0-34.0); Mean Corpuscular Volume 88.8 fL (80.0-100.0); Mean Platelet Volume 9.7 fL (9.4-12.4); Monocytes # (auto) 0.84 K/uL (0.11-0.59); Monocytes % (auto) 11.3 %; Neutrophils % (auto) 57.8 %; Platelet Count 225 K/uL (130-400); RDW Coefficient of Variation 13.6 % (11.5-14.5); RDW Standard Deviation 44.3 fL (36.4-46.3); White Blood Count 7.43 K/ul (4.8-10.8)
[2023-03-15] MEDS: FEXOFENADINE 60 MG TAB PO SCH ×2 (08:51→22:06)
[2023-03-15] MEDS: SODIUM CHLORIDE 1 GM TABLET PO SCH ×2 (08:52→16:25)
[2023-03-15] MEDS: carvediloL 25 MG TAB PO SCH ×2 (08:52→16:26)
[2023-03-15] MEDS: MICONAZOLE NITRATE POWDER 85 GM EXT SCH ×3 (08:53→22:08)
[2023-03-15] MEDS: TAMSULOSIN HCL 0.4 MG CAP PO SCH (08:53)
[2023-03-15] MEDS: POLYETHYLENE (MIRALAX) 17 GM PACK PO SCH (08:53)
[2023-03-15] MEDS: SENNA 8.6 MG TAB PO SCH (08:53)
[2023-03-15] MEDS: amLODIPine BESYLATE 5 MG TAB PO SCH (08:53)
[2023-03-15] MEDS: TRIAMCINOLONE ACET 0.1% CR 80 GM TUBE EXT SCH ×3 (08:54→22:07)
[2023-03-15] MEDS: NYSTATIN SUSP 500,000 U/5 ML UDC PO SCH ×4 (08:54→22:05)
--- NOTE | 2023-03-15 12:42 | Urology Progress Note ---
Date of Service March 15, 2023 Assessment & Plan (1) Complicated UTI (urinary tract infection): (2) Sepsis: (3) Fever: Plan: 72yo/M admitted with sepsis. He is s/p prostate needle biopsy on 02/26/2023; Subsequent hospitalizations for fever/UTI/prostatitis/urinary retention. Overall feeling much better. Afebrile and hemodynamically stable. Today's labscreatinine 0.88, WBC 7.43, hemoglobin 12.7 Urine culture 03/11 negative. Blood cultures no growth x 48 hours. Changed to IV Ertapenem for suspected prostatitis due to ? drug reaction to cefepime. He is voiding spontaneously and denies difficulty. Will need a total of 4 weeks of antibiotics for suspected prostatitis. ID consulted for antibiotic guidance given reaction to cefepime and prior culture sensitivities. Plan to follow-up with urology outpatient as scheduled. (4) Renal lesion: Plan: Can f/u as outpatient for further evaluation and management Urology will sign-off. Please contact us with any further questions, concerns, or change in patient status. Admission and Anticipated Discharge Date Admission Date: March 11, 2023 Subjective Patient examined at bedside this AM. Awake, sitting in bedside chair on arrival. No acute distress. Reports feeling much better. No fevers yesterday or today so far. Voiding without issue. Urine is clear yellow. Review of Systems Constitutional: as per Subjective / HPI Genitourinary: + as per Subjective / HPI Physical Exam Constitutional: no acute distress Respiratory: no respiratory distress and no labored breathing Neurologic: moves all extremities and awake Psychiatric: A+Ox3, euthymic affect Genitourinary: Urine is clear yellow in urinal. Results & Data Vital Signs (Past 12 Hours) Vital Signs Temp Pulse Resp BP Pulse Ox O2 Del Method 03/15/23 08:00 Room Air 03/15/23 07:06 37.0 C 72 18 158/77 H 94 Room Air PG Care Time/CCT Total # of Minutes Spent Total Time Spent with Patient: Total time spent is greater than 50% in coordination of care (as documented) at patient's floor/unit and/or counseling patient: Coding Level of Care Code 29049 SUB INP/OBS CARE 2/35MIN Diagnoses Complicated UTI (urinary tract infection) N39.0 Sepsis A41.9 Fever R50.9 Renal lesion N28.9
--- NOTE | 2023-03-15 13:08 | Infectious Disease Consult ---
Date of Consultation March 15, 2023 Assessment & Plan (1) Urinary tract infection: (2) Sepsis: (3) Prostatitis, acute: Plan #Prostatitis #S/p biopsy #Drug rash to Cefepime? 72 yo M with BPH underwent prostate biopsy on 02/26 (pathology negative for malignancy) admitted 02/27-03/01 for E Coli UTI/prostatitis, 02/26 Ucx grew >100,000 Ecoli (R quinolones), Initially treated with cefepime/daptomycin and discharged on Keflex. However he continued to have urinary symptoms with fevers and readmitted from 03/04-03/08. 03/04 Blood cultures were negative. He was given Bactrim for discharge. On 03/10 he was seen by urology and russo removed. Subsequently he developed fevers and chills and admitted on 03/11. On this admission he was febrile, UA with pyruria but Ucx cultures grew less than 1000colonies/mL unspeciated. 03/11 blood cultures no growth. He was started on Cefepime. On 03/13-03/04 developed diffuse rash and was changed to Ertapenem. ID consulted. He is HD stable, WBC and Cr normal. CT A/P shows prostatomegaly, no drainable fluid collection is definitely seen within the heterogeneous prostate. Bladder wall thickening may represent cystitis. Imaging also shows Indeterminate 1.8 cm exophytic lesion of the inferior pole left kidney rec nonemergent follow-up CT or MRI renal protocol recommended in order to exclude a renal cell carcinoma. Discussion: Patient with prostatitis, Ucx previously isolated Ecoli. Unclear why he potentially failed Bactrim? In setting of Cefepime rash would avoid cephalosporins. He is doing much better on Ertapenem.. Recommend: -Ertapenem 1G IV daily -plan for 3 weeks for total of 4 weeks (03/11-04/05) -EOT 04/05 -Weekly CBC with diff, CMP -Midline placement D/w Dr Delgado Please call me with any questions. Sangita Hernandez MD Infectious Diseases Consultation Information Consultation was provided via telemedicine using two-way real-time interactive telecommunication between the patient and the telemedicine provider. For the duration of the visit, the provider was performing the assessment from a different facility than the patient. This includesuse of bluetooth stethoscope forauscultationperformed by the telepresenter that the telemedicine provider can hear if described in the physical exam. Risk Reduction Counselor contact information: Please call [facility] [phone]. (Phone Number For Physician Use Only) After establishing a telemedicine visit, patient was: Patient was verified with two unique identifiers, Patient/authorized rep acknowledged consent and understanding and Gave permission to continue telehealth session Time Spent with Patient: Initial => 55 min History of Present Illness Reason for Consultation: Prostatitis Requesting Physician: Dr. Aguilar Attending Physician: Konstantin Delgado MD History of Present Illness 72 yo M with BPH underwent prostate biopsy on 02/26 (pathology negative for malignancy) admitted 02/27-03/01 for E Coli UTI/prostatitis, 02/26 Ucx grew >100,000 Ecoli (R quinolones), Initially treated with cefepime/daptomycin and discharged on Keflex. However he continued to have urinary symptoms with fevers and readmitted from 03/04-03/08. 03/04 Blood cultures were negative. He was given Bactrim for discharge. On 03/10 he was seen by urology and russo removed. Subsequently he developed fevers and chills and admitted on 03/11. On this admission he was febrile, UA with pyruria but Ucx cultures grew less than 1000colonies/mL unspeciated. 03/11 blood cultures no growth. He was started on Cefepime. On 03/13-03/04 developed diffuse rash and was changed to Ertapenem. ID consulted. He is HD stable, WBC and Cr normal. CT A/P shows prostatomegaly, no drainable fluid collection is definitely seen within the heterogeneous prostate. Bladder wall thickening may represent cystitis. Imaging also shows Indeterminate 1.8 cm exophytic lesion of the inferior pole left kidney rec nonemergent follow-up CT or MRI renal protocol recommended in order to exclude a renal cell carcinoma. Today, he tells me rash has resolved. Fevers resolved. He is urinating on his own without catheter. Normal flow, no pain, burning or discharge. Allergies Allergy/AdvReac Type Severity Reaction Status Date / Time No Known Allergies Allergy Verified 03/10/23 09:18 Home Medications Medication Instructions Recorded Confirmed Type tamsulosin 0.4 mg capsule 0.4 mg PO DAILY #90 caps 01/05/23 03/11/23 Rx atorvastatin 40 mg tablet 40 mg PO PM 02/27/23 03/11/23 History fluticasone propionate 50 2 spray intranasal DAILY 02/27/23 03/11/23 History mcg/actuation nasal spray,suspension lisinopril 40 mg tablet 40 mg PO PM 02/27/23 03/11/23 History omeprazole 20 mg capsule,delayed 20 mg PO QPM 02/27/23 03/11/23 History release sulfamethoxazole 800 1 tab PO Q12 10 days #20 tabs 03/07/23 03/11/23 Rx mg-trimethoprim 160 mg tablet (Bactrim DS) amlodipine 5 mg tablet (Norvasc) 10 mg PO QAM 1 month #60 tabs 03/08/23 03/11/23 Rx carvedilol 25 mg tablet 25 mg PO BIDM 1 month #60 tabs 03/08/23 03/11/23 Rx Patient History Medical History CAD (coronary artery disease) Elevated PSA Erectile dysfunction HTN (hypertension) Hyperlipidemia Social History Smoking Status: Never smoker Second Hand Exposure: No; Do You Dip or Chew Tobacco: No; Hx Alcohol Use: No Hx Substance Use: No Preferred Language: O[place]i Communication Ability: Effective Principal Accounts Clerk Required: No Beliefs That Will Affect Care: None Current Living Situation: Spouse Other Information That Helps Us Care for You: No Feels Safe at Home: Yes Safety Concerns: Feels Safe At This Time Assistive Devices: Walker Results & Data Vital Signs (Past 12 Hours) Vital Signs Temp Pulse Resp BP Pulse Ox O2 Del Method 03/15/23 08:00 Room Air 03/15/23 07:06 37.0 C 72 18 158/77 H 94 Room Air Laboratory Results Laboratory Results - last 48 hr 03/12/23 03/14/23 03/14/23 09:33 06:53 06:55 WBC 8.54 7.41 RBC 4.54 L 4.33 L Hgb 13.8 L 13.1 L Hct 41.0 L 38.8 L MCV 90.3 89.6 MCH 30.4 30.3 MCHC 33.7 33.8 RDW Std Deviation 48.0 H 46.4 H RDW Coeff of Amor 14.5 14.1 Plt Count 215 214 MPV 9.5 9.9 Immature Gran % (Auto) 0.7 0.3 Neut % (Auto) 75.2 64.9 Lymph % (Auto) 15.2 21.7 [place] % (Auto) 4.3 8.1 Eos % (Auto) 4.0 4.3 Baso % (Auto) 0.6 0.7 Neut # (Auto) 5.26 4.81 Lymph # (Auto) 1.06 L 1.61 [place] # (Auto) 0.30 0.60 H Eos # (Auto) 0.28 0.32 Baso # (Auto) 0.04 0.05 Immature Gran # (Auto) 0.05 0.02 Sodium 130 L Potassium 4.3 Chloride 101 Carbon Dioxide 23 Anion Gap 6 BUN 23 Creatinine 0.86 Est Cr Clr Drug Dosing 110.8 Est GFR ( Amer) 100.4 Est GFR (Non-Af Amer) 86.6 BUN/Creatinine Ratio 26.7 H Glucose 109 H Calcium 8.1 L Urine Osmolality Ur Random Sodium 03/14/23 03/14/23 03/15/23 13:20 13:20 06:24 WBC 7.43 RBC 4.20 L Hgb 12.7 L Hct 37.3 L MCV 88.8 MCH 30.2 MCHC 34.0 RDW Std Deviation 44.3 RDW Coeff of Amor 13.6 Plt Count 225 MPV 9.7 Immature Gran % (Auto) 0.4 Neut % (Auto) 57.8 Lymph % (Auto) 25.2 [place] % (Auto) 11.3 Eos % (Auto) 4.6 Baso % (Auto) 0.7 Neut # (Auto) 4.30 Lymph # (Auto) 1.87 [place] # (Auto) 0.84 H Eos # (Auto) 0.34 Baso # (Auto) 0.05 Immature Gran # (Auto) 0.03 Sodium Potassium Chloride Carbon Dioxide Anion Gap BUN Creatinine Est Cr Clr Drug Dosing Est GFR ( Amer) Est GFR (Non-Af Amer) BUN/Creatinine Ratio Glucose Calcium Urine Osmolality 334 L Ur Random Sodium 21 03/15/23 06:24 WBC RBC Hgb Hct MCV MCH MCHC RDW Std Deviation RDW Coeff of Amor Plt Count MPV Immature Gran % (Auto) Neut % (Auto) Lymph % (Auto) [place] % (Auto) Eos % (Auto) Baso % (Auto) Neut # (Auto) Lymph # (Auto) [place] # (Auto) Eos # (Auto) Baso # (Auto) Immature Gran # (Auto) Sodium 134 L Potassium 4.4 Chloride 103 Carbon Dioxide 24 Anion Gap 7 BUN 20 Creatinine 0.88 Est Cr Clr Drug Dosing 108.2 Est GFR ( Amer) 99.5 Est GFR (Non-Af Amer) 85.8 BUN/Creatinine Ratio 22.7 H Glucose 110 H Calcium 8.4 L Urine Osmolality Ur Random Sodium Medications Administered Current Inpatient Medications Acetaminophen (Acetaminophen 500 Mg Tab) 1,000 mg PO Q8H PRN PRN Reason: pain or T >38 Stop: 04/13/23 08:13 Amlodipine Besylate (Amlodipine Besylate 5 Mg Tab) 10 mg PO QAM YULIANA Stop: 04/11/23 08:59 Last Admin: 03/15/23 08:53 Dose: 10 mg Atorvastatin Calcium (Atorvastatin 40 Mg Tab) 40 mg PO PM YULIANA Stop: 04/10/23 23:01 Last Admin: 03/14/23 20:35 Dose: 40 mg Carvedilol (Carvedilol 25 Mg Tab) 25 mg PO BIDM YULIANA Stop: 04/11/23 07:59 Last Admin: 03/15/23 08:52 Dose: 25 mg Fexofenadine HCl (Fexofenadine 60 Mg Tab) 60 mg PO BID YULIANA Stop: 04/13/23 08:59 Last Admin: 03/15/23 08:51 Dose: 60 mg Ertapenem 1,000 mg/ Syringe 10 mls @ 2 mls/min IV Q24H YULIANA Stop: 03/24/23 18:59 Last Admin: 03/14/23 19:19 Dose: 2 mls/min Lisinopril (Lisinopril 40 Mg Tab) 40 mg PO PM YULIANA Stop: 04/10/23 23:01 Last Admin: 03/14/23 20:35 Dose: 40 mg Miconazole Nitrate (Miconazole Nitrate Powder 85 Gm) 1 appln EXT TID YULIANA Stop: 04/12/23 16:19 Last Admin: 03/15/23 08:53 Dose: 1 appln Nystatin (Nystatin Susp 500,000 U/5 Ml Udc) 5 ml PO QID YULIANA Stop: 03/23/23 16:59 Last Admin: 03/15/23 08:54 Dose: 5 ml Ondansetron HCl (Ondansetron Inj 2 Mg/Ml 2 Ml Vial) 4 mg IV Q6H PRN PRN Reason: Nausea Stop: 04/10/23 23:01 Last Admin: 03/12/23 20:02 Dose: 4 mg Pantoprazole Sodium (Pantoprazole 40 Mg Tab) 40 mg PO QPM YULIANA Stop: 04/10/23 23:01 Last Admin: 03/14/23 20:35 Dose: 40 mg Polyethylene Glycol (Polyethylene (Miralax) 17 Gm Pack) 17 gm PO DAILY YULIANA Stop: 04/13/23 08:59 Last Admin: 03/15/23 08:53 Dose: Not Given Sennosides (Senna 8.6 Mg Tab) 17.2 mg PO QAM YULIANA Stop: 04/13/23 08:59 Last Admin: 03/15/23 08:53 Dose: Not Given Sodium Chloride (Sodium Chloride 1 Gm Tablet) 2 gm PO Q12H YULIANA Stop: 04/13/23 08:29 Last Admin: 03/15/23 08:52 Dose: 2 gm Tamsulosin HCl (Tamsulosin Hcl 0.4 Mg Cap) 0.4 mg PO DAILY YULIANA Stop: 04/11/23 08:59 Last Admin: 03/15/23 08:53 Dose: 0.4 mg Triamcinolone Acetonide (Triamcinolone Acet 0.1% Cr 80 Gm Tube) 1 appln EXT TID YULIANA Stop: 04/12/23 16:39 Last Admin: 03/15/23 08:54 Dose: 1 appln
[2023-03-15] MEDS: ERTAPENEM SODIUM 1,000 MG in SYRINGE 0 ML IV SCH (18:10)
[2023-03-15] MEDS: PANTOprazole 40 MG TAB PO SCH (22:06)
[2023-03-15] MEDS: lisinopril 40 MG TAB PO SCH (22:06)
[2023-03-15] MEDS: ATORVASTATIN 40 MG TAB PO SCH (22:07)
[2023-03-16] MEDS: SODIUM CHLORIDE 1 GM TABLET PO SCH ×2 (03:09→15:11)
--- NOTE | 2023-03-16 06:35 | Hospitalist Progress Note ---
Date of Service March 15, 2023 Assessment & Plan (1) Sepsis: Plan: Resolved. presumed urinary tract in etiology but urine cx negative. this does not rule out UTI, and in some cases of prostatitis the culture is negative. suspect PROSTATITIS (was treated for such last admission - d/c on 03/08/23 with 10 day course of PO bactrim, but returned 03/11/23). CT chest without pneumonia. [employer] resp panel negative. lyme negative. blood cultures negative. ? drug rxn to cefepime?? drug reaction to bactrim? rash not pruritic, however, and eosinophils only 4%. [id number] the rash is fairly diffuse. to be safe - stop cefepime, changed to IV ertapenem once daily. appreciate ID consultation - they, too, think he had drug reaction. Would not use bactrim or cephalosporin. ID advises 3 weeks of IV ertapenem daily. mid-line PICC needed; consent obtained. Will place order for such. (2) Complicated UTI (urinary tract infection): Plan: 02/27/23 e.coli UTI. required hospitalization x 2 (late January, then early February). was given a course of bactrim for prostatitis. 10 days was given at time of d/c on March 09. e.coli was resistant to quinolones. urine culture this admission negative. since no pulmonary source, blood cx's negative, and tick-borne labs thus far are negative - would Rx for prostatitis given prolonged russo usage, prostate biopsy recently, e.coli in urine in late January, etc. would Rx for 3 additional weeks of IV ertapenem per infectious diseases. script printed, given to case management. (3) Prostatitis, acute: Plan: see above highly suspected (4) Metabolic encephalopathy: Plan: 2nd sepsis resolved (5) Acute hyponatremia: Plan: has been low dating back to January IMPROVED today -- 134 Uosm markedly elevated initially, has improved with salt tab supplementation Urine Na noted 30 cont naCl tabs 1gm BID recheck BMP in am looks euvolemic again today (6) Urinary retention: Plan: Russo removal on 03/10 No LUTS since removal Cont flomax (7) Renal lesion: Plan: left s/p ultrasound -- complex cyst likely will need ongoing surveillance by urology (8) Acute hypoxic respiratory failure: Plan: resolved was likely due to atelectasis CT chest reviewed with Dr Lopez from radiology NO pneumonia Mild bronchiectasis in the bases but no ILD, etc cont flutter valve, incentive o2 is off needs w/u for KARLOS as outpatient (9) CAD (coronary artery disease): Plan: Continue atorvastatin, carvedilol, lisinopril No ischemic symptoms (10) Hyperlipidemia: Plan: Continue atorvastatin (11) HTN (hypertension): Plan: Continue lisinopril, amlodipine, carvedilol controlled (12) GERD (gastroesophageal reflux disease): Plan: Continue PPI (13) Rash: Plan: back, face, upper chest, arms drug rxn to cefepime?? drug rxn to bactrim (used just prior to admission)? switched to IV ertapenem cont symptomatic Rx [place] BID triamcinolone cream TID in thin amounts -- avoid face, however once all urological issues have resolved would send to allergy with [facility] to have testing to determine what, if anything, he is allergic to (14) Candidal diaper rash: Plan: miconazole powder TID to scrotum and groin liberally - improving (15) Candidiasis of mouth and esophagus: Plan: nystatin swish - 5cc qid - improved Plan DVT prophylaxis: Lovenox ordered PT/OT evals - can return home at d/c with family daughter and updated at bedside again today care d/w infectious disease- Dr Hernandez Admission and Anticipated Discharge Date Admission Date: March 11, 2023 Subjective new new complaints today rash on back, arms, etc - improved groin/scrotal rash - improved eating is back to normal drinking fluids no pain any location we discussed need for mid-line PICC will need 3 weeks of IV ertapenem daily ID saw patient and advised this ID also felt that his rash was drug reaction - 2nd to bactrim? cefepime? consent for PICC completed; risks/benefits reviewed late in the day the patient's & daughter were present reviewed care plan, need for mid-line PICC, etc Review of Systems Review of Systems: gen - no fevers or chills cv - no cp pulm - no dyspnea, no cough GI - no diarrhea - no LUTS, no dysuria Physical Exam Physical Exam: gen - NAD, looks well again today mouth - MMM, thrush resolved neck - no JVD heart - RRR, s1 s2, no murmur lungs - b/l basilar dry rales L>R - no changes; no wheeze, no increased work of breathing, normal airation abd - soft NT ND BS+ ext - no edema, pulses 2+ b/l psych - a/o x 3 skin - erythematous rash covering most of back extending to buttocks - improved; upper chest, neck, face - rash improved; inner portion of both arms -- also improved; candidal rash scrotum and groin -- improved Results & Data Results & Data Vital Signs (Past 12 Hours) Vital Signs Temp Pulse Resp BP Pulse Ox O2 Del Method 03/15/23 15:20 37.0 C 62 16 155/76 H 94 Room Air 03/15/23 08:00 Room Air 03/15/23 07:06 37.0 C 72 18 158/77 H 94 Room Air Laboratory Results Laboratory Results 03/14/23 03/14/23 03/14/23 06:53 06:55 13:20 WBC 7.41 RBC 4.33 L Hgb 13.1 L Hct 38.8 L MCV 89.6 MCH 30.3 MCHC 33.8 RDW Std Deviation 46.4 H RDW Coeff of Amor 14.1 Plt Count 214 MPV 9.9 Immature Gran % (Auto) 0.3 Neut % (Auto) 64.9 Lymph % (Auto) 21.7 [place] % (Auto) 8.1 Eos % (Auto) 4.3 Baso % (Auto) 0.7 Neut # (Auto) 4.81 Lymph # (Auto) 1.61 [place] # (Auto) 0.60 H Eos # (Auto) 0.32 Baso # (Auto) 0.05 Immature Gran # (Auto) 0.02 Sodium 130 L Potassium 4.3 Chloride 101 Carbon Dioxide 23 Anion Gap 6 BUN 23 Creatinine 0.86 Est Cr Clr Drug Dosing 110.8 Est GFR ( Amer) 100.4 Est GFR (Non-Af Amer) 86.6 BUN/Creatinine Ratio 26.7 H Glucose 109 H Calcium 8.1 L Urine Osmolality 334 L Ur Random Sodium 03/14/23 03/15/23 03/15/23 13:20 06:24 06:24 WBC 7.43 RBC 4.20 L Hgb 12.7 L Hct 37.3 L MCV 88.8 MCH 30.2 MCHC 34.0 RDW Std Deviation 44.3 RDW Coeff of Amor 13.6 Plt Count 225 MPV 9.7 Immature Gran % (Auto) 0.4 Neut % (Auto) 57.8 Lymph % (Auto) 25.2 [place] % (Auto) 11.3 Eos % (Auto) 4.6 Baso % (Auto) 0.7 Neut # (Auto) 4.30 Lymph # (Auto) 1.87 [place] # (Auto) 0.84 H Eos # (Auto) 0.34 Baso # (Auto) 0.05 Immature Gran # (Auto) 0.03 Sodium 134 L Potassium 4.4 Chloride 103 Carbon Dioxide 24 Anion Gap 7 BUN 20 Creatinine 0.88 Est Cr Clr Drug Dosing 108.2 Est GFR ( Amer) 99.5 Est GFR (Non-Af Amer) 85.8 BUN/Creatinine Ratio 22.7 H Glucose 110 H Calcium 8.4 L Urine Osmolality Ur Random Sodium 21 PG Care Time/CCT Total # of Minutes Spent Total Time Spent with Patient: Total time spent is greater than 50% in coordination of care (as documented) at patient's floor/unit and/or counseling patient: Coding Level of Care Code 88827 SUB INP/OBS CARE 3/50MIN Diagnoses Sepsis A41.9 Complicated UTI (urinary tract infection) N39.0 Prostatitis, acute N41.0 Metabolic encephalopathy G93.41 Acute hyponatremia E87.1 Urinary retention R33.9 Renal lesion N28.9 Acute hypoxic respiratory failure J96.01 CAD (coronary artery disease) I25.10 Hyperlipidemia E78.5 HTN (hypertension) I10 GERD (gastroesophageal reflux disease) K21.9 Rash R21 Candidal diaper rash B37.2; L22 Candidiasis of mouth and esophagus B37.81; B37.0
[2023-03-16 07:52] LABS: BUN Creatinine Ratio 22.4 (10-20); Creatinine Clr Calc Pharmacy 125.3 ml/min; Est GFR (African American) 105.6 ml/min; Est GFR (Non-African American) 91.1 ml/min; Potassium 4.4 mmol/L (3.5-5.1)
[2023-03-16] MEDS: FEXOFENADINE 60 MG TAB PO SCH (08:11)
[2023-03-16] MEDS: amLODIPine BESYLATE 5 MG TAB PO SCH (08:12)
[2023-03-16] MEDS: TAMSULOSIN HCL 0.4 MG CAP PO SCH (08:12)
[2023-03-16] MEDS: POLYETHYLENE (MIRALAX) 17 GM PACK PO SCH (08:13)
[2023-03-16] MEDS: SENNA 8.6 MG TAB PO SCH (08:13)
[2023-03-16] MEDS: carvediloL 25 MG TAB PO SCH ×2 (08:13→16:19)
[2023-03-16] MEDS: NYSTATIN SUSP 500,000 U/5 ML UDC PO SCH ×3 (08:14→16:17)
[2023-03-16] MEDS: TRIAMCINOLONE ACET 0.1% CR 80 GM TUBE EXT SCH ×2 (08:14→15:08)
[2023-03-16] MEDS: MICONAZOLE NITRATE POWDER 85 GM EXT SCH ×2 (08:15→15:09)
--- NOTE | 2023-03-16 13:52 | Discharge Summary ---
Date of Service March 16, 2023 Admission HPI Per Admitting Provider Pt is 72 yo M with PMH CAD, HTN, HLD, GERD, BPH presenting with fever. Pt admitted 02/27-03/01 for E Coli UTI/prostatitis following prostate biopsy on 02/26 (pathology report since with benign glands), treated with cefe pime/daptomycin and discharged on Keflex. Continued to have dysuria, urinary frequency, fevers with Tmax 102 F and diaphoresis, chills. Readmitted 03/04-03/08 due to metabolic encephalopathy 2/2 UTI/prostatitis, hyponatremia, acute urinary retention. Banuelos catheter placed, continued by urology. Discharged on Bactrim for planned 14 day course. Pt has unfortunately continued to have similar UTI symptoms, diaphoresis, chills, fever Tmax 103 F and confusion. He has had poor oral intake and an episode of NBNB emesis this AM. Banuelos removed by urology at visit on 03/10, pt has been voiding normally since. Brought to ER by family today. Pt arrived to ER hemodynamically stable, though with transient dyspnea and hypoxia to 89% O2 and fever 38.5 C. Initial evaluation significant for Na 130, UA with WBCs, hyaline + epithelial casts. RVP negative. CXR with some cardiomegaly. CTAP with redemonstration of prostatomegaly w/o drainable fluid collection, bladder wall thickening possibly leasing representative of cystitis, mild b/l hydroureter, redemonstration of L renal lesions. ER interventions include 2.5L NSS repletion, cefepime 2g, Tylenol 1000 mg IV. At present, pt reports feeling ok, denies any new symptoms. Family states his mental status is now largely back to baseline, reports he has not had any hematuria. Principal Diagnosis Complicated UTI, sepsis, acute metabolic encephalopathy Discharge Exam General-alert and oriented x3, no fevers, no chills HEENT-head atraumatic and normocephalic, pupils equal and reactive to light, extraocular muscles intact Neck-no lymphadenopathy or thyromegaly, trachea midline Chest-clear to auscultation percussion. No rales wheezing or rhonchi Cardiac-regular rate and rhythm, normal S1 and S2 Abdomen-normal bowel sounds, nontender, no hepatosplenomegaly Extremities-no cyanosis, clubbing, or edema Neuro-cranial nerves II through XII intact, motor and sensory function within normal limits, strength symmetrical, no focal deficits Psych-normal affect, normal mood Discharge Data Allergies Allergy/AdvReac Type Severity Reaction Status Date / Time No Known Allergies Allergy Verified 03/10/23 09:18 Consultations 03/11/23 17:59 ED Decision to Admit Stat 03/11/23 23:02 Consult Urology Routine 03/15/23 09:45 Consult Infectious Diseases Routine Ordered Studies 03/11/23 15:56 CT abd pelvis IV con only Stat 03/12/23 16:01 CT chest diagnostic wo con Routine 03/12/23 19:15 US renal/blad retro comp Routine Hospital Course (1) Sepsis: Present on admission. Resolved. (2) Complicated UTI (urinary tract infection): 02/27/23 e.coli UTI. required hospitalization x 2 (late January, then early February). Was given a course of bactrim for prostatitis. E.coli was resistant to quinolones. Now on IV ertapenem through April 05 (3) Prostatitis, acute: Continue current antibiotic therapy. Resolved (4) Metabolic encephalopathy: Present on admission. Now resolved (5) Acute hyponatremia: Mild. Present on admission. Now resolved . Treated with oral sodium chloride tablets while hospitalized. (6) Urinary retention: Banuelos removal on 03/10. Now voiding without difficulty. Cont flomax (7) Renal lesion: left side. s/p ultrasound -- complex cyst likely. Continued outpatient surveillance by urology (8) Acute hypoxic respiratory failure: Present on admission. Now resolved. Atelectasis is likely source (9) CAD (coronary artery disease): Stable. Continue atorvastatin, carvedilol, lisinopril (10) Hyperlipidemia: Stable. Continue atorvastatin (11) HTN (hypertension): Stable. Continue lisinopril, amlodipine, carvedilol (12) GERD (gastroesophageal reflux disease): Stable. Continue PPI (13) Rash: Possibly due to cefepime. Now resolved. (14) Candidal diaper rash: Resolved with miconazole powder TID to scrotum and groin (15) Candidiasis of mouth and esophagus: Resolved with nystatin swish Plan Home today, March 16. Continue intravenous ertapenem through April 05. Total Time Total Time Spent Total Time Spent (In Minutes): 45 minutes Discharge Plan Discharge Items Patient Disposition: Home - Home Health Services Reason For Visit: UTI Discharge Diagnosis: Complicated UTI, sepsis, acute metabolic encephalopathy Activity: Resume your previous activity Non-emergency contact: Primary Care Provider Call non-emergency contact if: you have any medication questions and your symptoms worsen Follow-up/Referrals: Neri Loyd CRNP [Primary Care Provider] - Diet: Regular and Heart Healthy Addtl Attending Provider Instructions: Will stay on ertapenem intravenously through April 05 Pending Studies at Discharge: No Stand-Alone Forms: My [facility] [employer], Smoking Cessation Medications and DC Order Prescriptions: New ertapenem 1 gram recon soln 1 g IV DAILY 21 Days Qty: 21 0RF Rx Instructions: dx - complicated UTI/acute prostatitis. Continued tamsulosin 0.4 mg capsule 0.4 mg PO DAILY Qty: 90 3RF carvedilol 25 mg Tablet 25 mg PO BIDM 30 Days Qty: 60 0RF amlodipine [Norvasc] 5 mg Tablet 10 mg PO QAM 30 Days Qty: 60 0RF atorvastatin 40 mg tablet 40 mg PO PM omeprazole 20 mg capsule,delayed release(DR/EC) 20 mg PO QPM lisinopril 40 mg tablet 40 mg PO PM fluticasone propionate 50 mcg/actuation spray,suspension 2 spray INTRANASAL DAILY Discontinued sulfamethoxazole-trimethoprim [Bactrim DS] 800-160 mg Tablet 1 tab PO Q12 10 Days Qty: 20 0RF Discharge Orders: Discharge Order (Routine); Ordered 03/16/23 Ordered By: Rafa Gonzales Admission Data Admit Date/Time: 03/11/23 19:15 Attending Provider: Rafa Gonzales Admit Provider: Robe Whittaker Primary Care Provider: Neri Loyd Other Providers: Guzman Napoles ; Kalin Sam ; Ignacio Alcaraz ; Reji Almonte ; Deandra Mcneil ; Raji Oviedo ; Maria Esther Guerrero ; Christina Carroll ; Cliff Mackenzie ; Claire Tompkins ; Víctor Hamilton ; Kyler Tian ; Suzette Milian ; Jordin Peace ; Marci Virk ; Coy Salinas ; Keren Kendall ; Sangita Hernandez ; Lena Cope ; Angela Tam ; Vicenta Navarro ; Renetta Zamudio ; [facility] ; Tom,[employer] Coding Level of Care Code 65095 INP/OBS DISCH >30 MIN Diagnoses Sepsis A41.9 Complicated UTI (urinary tract infection) N39.0 Prostatitis, acute N41.0 Metabolic encephalopathy G93.41 Acute hyponatremia E87.1 Urinary retention R33.9 Renal lesion N28.9 Acute hypoxic respiratory failure J96.01 CAD (coronary artery disease) I25.10 Hyperlipidemia E78.5 HTN (hypertension) I10 GERD (gastroesophageal reflux disease) K21.9 Rash R21 Candidal diaper rash B37.2; L22 Candidiasis of mouth and esophagus B37.81; B37.0
[2023-03-16] MEDS ORDERED: Nursing to Pharmacy Communication SCH (16:00)
[2023-03-16] MEDS: ERTAPENEM SODIUM 1,000 MG in SYRINGE 0 ML IV SCH (16:21)
[2023-03-17 11:09] LABS: Ehrlichia chaff DNA Bld Negative (Negative)
== END 2023-03-16 17:36 | disposition home health service (06) | DRG 871 ==
LOC: ED 13:59 → 3N 19:15 → SUATTDRO 19:15 → 3N 23:07